=== PATIENT | female | born 1990 | race Caucasian/White ===

== ENCOUNTER 2017-03-09 14:31 | Emergency (ER) | payer BC ==
[~2017-03-09] VITALS: Ht 170.2 cm; Wt 63.5 kg
[2017-03-09 14:37] VITALS: TEMP 36.7
[2017-03-09] MEDS ORDERED: PRENTAB26 PO (15:01)
--- NOTE | 2017-03-09 15:04 | DIAGNOSTIC IMAGING REPORT ---
CHEST ONE VIEW PORTABLE HISTORY: 26 years-old Female EVALUATE RESPIRATORY DISTRESS.DYSPNEA acute respiratory distress COMPARISON: None available TECHNIQUE: Portable upright AP view the chest FINDINGS: Cardiomediastinal and hilar silhouettes are within normal limits. There is no pneumothorax, pleural effusion, focal airspace consolidation or overt pulmonary edema. Relative increased density left lung base is likely secondary to overlying breast parenchyma. The bones of the chest appear grossly intact. IMPRESSION: No acute cardiopulmonary process. The above report was generated using voice recognition software. It may contain grammatical, syntax or spelling errors. Electronically signed by: Chester Perdomo M.D. 03/09/2017 3:03 PM Dictated Date/Time: 03/09/2017 3:02 PM
[2017-03-09 15:29] VITALS: Ht 170.2 cm; Wt 63.5 kg
[2017-03-09 15:32] LABS: BASO % 0.2 %; BASO ABS # 0.02 K/uL (0-0.2); COMPLETE YES; HEMATOCRIT 34.7 % (37-47); IG% 0.1 %; LYMPH % 12.8 %; MEAN CELL VOLUME 86.1 fL (80-100); MEAN CORPUSCULAR HEMOGLOBIN 30.3 pg (25-34); MEAN CORPUSCULAR HGB CONC 35.2 g/dl (32-36); MEAN PLATELET VOLUME 10.5 fL (7.4-10.4); MONO % 4.7 %; NEUT % 81.2 %; PLATELET COUNT 166 K/uL (130-400); RED BLOOD COUNT 4.03 M/uL (4.2-5.4); WHITE BLOOD COUNT 10.12 K/uL (4.8-10.8)
[2017-03-09 15:43] LABS: PROTHROMBIN TIME (PATIENT) 10.4 SECONDS (9.0-12.0)
[2017-03-09 15:43] LABS: MANUAL MICROSCOPIC REQUIRED? NO; REVIEW REQ? NO; URINE APPEARANCE CLEAR (CLEAR); URINE BILIRUBIN NEG (NEG); URINE COLOR YELLOW; URINE EPITHELIAL CELL AUTO 20-30 /lpf (0-5); URINE NITRITE NEG (NEG); URINE SPECIFIC GRAVITY 1.027 (1.000-1.030); UROBILINOGEN NEG (NEG)
[2017-03-09 15:51] LABS: ALT/SGPT 27 U/L (12-78); BLOOD UREA NITROGEN 9 mg/dl (7-18); BUN/CREATININE RATIO 13.6 (10-20); CARBON DIOXIDE 26 mmol/L (21-32); CHLORIDE 102 mmol/L (98-107); CREATININE 0.64 mg/dl (0.60-1.20); GLUCOSE 76 mg/dl (70-99); POTASSIUM 3.4 mmol/L (3.5-5.1); SODIUM 138 mmol/L (136-145)
[2017-03-09 15:56] LABS: ALB/GLOB RATIO 0.7 (0.9-2); ALKALINE PHOSPHATASE 56 U/L (45-117); AST/SGOT 18 U/L (15-37)
--- NOTE | 2017-03-09 16:10 | EMERGENCY ROOM VISIT NOTE ---
History Report prepared by Chon: Elisabet Le Under the Supervision of: Dr. Alexis Gu D.O. First contact with patient: 14:47 Chief Complaint: RIB PAIN Stated Complaint: LEFT RIB PAIN,COUGH,PHLEGM,14WKS PREG History of Present Illness The patient is a 26 year old female who presents to the Emergency Room with complaints of persistent left rib pain starting 2 weeks ago. Her symptoms started 3 weeks ago with chills and congestion. These symptoms seemed to resolve and she began coughing. She went to her PCP who did not give her any medications because she was 12 weeks . She is now not coughing as much, but is having left rib pain. It worsens with breathing and coughing. She denies any fever, leg swelling or pain, chest pain, nausea, vomiting, abdominal cramping, vaginal bleeding or discharge, or back pain. She is currently 14 weeks . This is her first . She is due September 05. She is not on any medications besides a multivitamin. She denies any tobacco or alcohol use. She denies any history of blood clots. She denies any previous surgeries besides a tonsillectomy. Source of History: patient Onset: 2 weeks ago Position: other (left rib) Quality: other (pain) Timing: other (persistent) Modifying Factors (Worsening): breathing, other (coughing) Associated Symptoms: + cough, No fevers, No chest pain, No nausea, No vomiting, No abdominal pain, No back pain Note: Pt denies leg swelling/pain, vaginal bleeding/discharge. Review of Systems See HPI for pertinent positives & negatives. A total of 10 systems reviewed and were otherwise negative. Past Medical & Surgical Surgical Problems: (1) S/P tonsillectomy and adenoidectomy Family History Cancer Diabetes mellitus Heart disease Hypertension Social History Smoking Status: Never Smoker Marital Status: Housing Status: lives with significant other Current/Historical Medications Scheduled Albuterol Hfa (Ventolin Hfa), 1 PUFF INH Q4 Azithromycin (Zithromax Z-Gabino), 1 PKT PO UD Multivit/Min/Iron/Fol Ac/Pren ( Vitamin), 1 TAB PO DAILY Allergies Coded Allergies: No Known Allergies (Unverified , 03/09/17) Physical Exam Vital Signs Date Time Temp Pulse Resp B/P (MAP) Pulse Ox O2 Delivery O2 Flow Rate FiO2 03/09/17 16:23 57 20 108/56 99 Room Air 03/09/17 16:09 Room Air 03/09/17 15:29 Room Air 03/09/17 15:19 59 03/09/17 14:37 36.7 93 17 129/85 97 Room Air Physical Exam GENERAL: Patient is awake, alert, and in no acute distress. Patient is resting comfortably and showing no signs of anxiety EYES: The conjunctivae are clear. The pupils are round and reactive. EARS, NOSE, MOUTH AND THROAT: The nose is without any evidence of any deformity. Mucous membranes are moist tongue is midline NECK: The neck is nontender and supple. RESPIRATORY: Normal respiratory effort is noted there is no evidence of wheezing rhonchi or rales CARDIOVASCULAR: Regular rate and rhythm noted there no murmurs rubs or gallops normal S1 normal S2 GASTROINTESTINAL: The abdomen is soft. Bowel sounds are present in all quadrants. Abdomen is nontender BACK: No midline tenderness or or step-off noted range of motion in flexion extension as well as rotation no signs of muscle spasm noted MUSCULOSKELETAL/EXTREMITIES: There is no evidence of gross deformity full range of motion is noted in the hips and shoulders SKIN: There is no obvious evidence of any rash. There are no petechiae, pallor or cyanosis noted. NEUROLOGIC: Patient is awake alert and oriented x3 strength is symmetric patellar reflexes are 2+ bilaterally Medical Decision & Procedures ER Provider Diagnostic Interpretation: X-ray results as stated below per interpretation by me and the radiologist. CHEST ONE VIEW PORTABLE HISTORY: 26 years-old Female EVALUATE RESPIRATORY DISTRESS.DYSPNEA acute respiratory distress COMPARISON: None available TECHNIQUE: Portable upright AP view the chest FINDINGS: Cardiomediastinal and hilar silhouettes are within normal limits. There is no pneumothorax, pleural effusion, focal airspace consolidation or overt pulmonary edema. Relative increased density left lung base is likely secondary to overlying breast parenchyma. The bones of the chest appear grossly intact. IMPRESSION: No acute cardiopulmonary process. The above report was generated using voice recognition software. It may contain grammatical, syntax or spelling errors. Electronically signed by: Chester Perdomo M.D. 03/09/2017 3:03 PM Dictated Date/Time: 03/09/2017 3:02 PM Laboratory Results 03/09/17 15:17 Red Blood Count 4.03, Mean Corpuscular Volume 86.1, Mean Corpuscular Hemoglobin 30.3, Mean Corpuscular Hemoglobin Concent 35.2, Mean Platelet Volume 10.5, Neutrophils (%) (Auto) 81.2, Lymphocytes (%) (Auto) 12.8, Monocytes (%) (Auto) 4.7, Eosinophils (%) (Auto) 1.0, Basophils (%) (Auto) 0.2, Neutrophils # (Auto) 8.21, Lymphocytes # (Auto) 1.30, Monocytes # (Auto) 0.48, Eosinophils # (Auto) 0.10, Basophils # (Auto) 0.02 03/09/17 15:17 Test 03/09/17 15:17 03/09/17 15:30 White Blood Count 10.12 K/uL (4.8-10.8) Red Blood Count 4.03 M/uL (4.2-5.4) Hemoglobin 12.2 g/dL (12.0-16.0) Hematocrit 34.7 % (37-47) Mean Corpuscular Volume 86.1 fL (80-100) Mean Corpuscular Hemoglobin 30.3 pg (25-34) Mean Corpuscular Hemoglobin Concent 35.2 g/dl (32-36) Platelet Count 166 K/uL (130-400) Mean Platelet Volume 10.5 fL (7.4-10.4) Neutrophils (%) (Auto) 81.2 % Lymphocytes (%) (Auto) 12.8 % Monocytes (%) (Auto) 4.7 % Eosinophils (%) (Auto) 1.0 % Basophils (%) (Auto) 0.2 % Neutrophils # (Auto) 8.21 K/uL (1.4-6.5) Lymphocytes # (Auto) 1.30 K/uL (1.2-3.4) Monocytes # (Auto) 0.48 K/uL (0.11-0.59) Eosinophils # (Auto) 0.10 K/uL (0-0.5) Basophils # (Auto) 0.02 K/uL (0-0.2) RDW Standard Deviation 41.5 fL (36.4-46.3) RDW Coefficient of Variation 13.2 % (11.5-14.5) Immature Granulocyte % (Auto) 0.1 % Immature Granulocyte # (Auto) 0.01 K/uL (0.00-0.02) Prothrombin Time 10.4 SECONDS (9.0-12.0) Prothromb Time International Ratio 1.0 (0.9-1.1) Activated Partial Thromboplast Time 27.1 SECONDS (21.0-31.0) Partial Thromboplastin Ratio 1.0 Anion Gap 10.0 mmol/L (3-11) Est Creatinine Clear Calc Drug Dose 127.3 ml/min Estimated GFR () 140.7 Estimated GFR (Non- 121.4 BUN/Creatinine Ratio 13.6 (10-20) Calcium Level 9.0 mg/dl (8.5-10.1) Total Bilirubin 0.3 mg/dl (0.2-1) Aspartate Amino Transf (AST/SGOT) 18 U/L (15-37) Alanine Aminotransferase (ALT/SGPT) 27 U/L (12-78) Alkaline Phosphatase 56 U/L (45-117) Troponin I < 0.015 ng/ml (0-0.045) Total Protein 8.0 gm/dl (6.4-8.2) Albumin 3.4 gm/dl (3.4-5.0) Globulin 4.6 gm/dl (2.5-4.0) Albumin/Globulin Ratio 0.7 (0.9-2) Urine Color YELLOW Urine Appearance CLEAR (CLEAR) Urine pH 5.0 (4.5-7.5) Urine Specific [place] 1.027 (1.000-1.030) Urine Protein NEG (NEG) Urine Glucose (UA) NEG (NEG) Urine Ketones TRACE (NEG) Urine Occult Blood NEG (NEG) Urine Nitrite NEG (NEG) Urine Bilirubin NEG (NEG) Urine Urobilinogen NEG (NEG) Urine Leukocyte Esterase TRACE (NEG) Urine WBC (Auto) 1-5 /hpf (0-5) Urine RBC (Auto) 0-4 /hpf (0-4) Urine Hyaline Casts (Auto) 1-5 /lpf (0-5) Urine Epithelial Cells (Auto) 20-30 /lpf (0-5) Urine Bacteria (Auto) NEG (NEG) Laboratory results per my review. Procedure Bedside ultrasound was done at the patient's request to evaluate the intrauterine gestation. A single live intrauterine gestation was noted with good movement and heart sounds were noted on Doppler. The parents were able to watch the ultrasound were very pleased with the findings. ECG Indication: chest pain Rate (beats per minute): 61 Rhythm: normal sinus Findings: no ectopy, other (no acute ST segment abnormality) Comparison ECG Date: no prior available ED Course 1444: The patient was evaluated in room B4B. A complete history and physical examination were performed. Medical Decision Prior records/ancillary studies reviewed. Triage Nursing notes reviewed. Additional history obtained from [facility]. The patient's history was concerning for chest pain. Differential diagnosis: Etiologies such as cardiac ischemia, aortic dissection, pulmonary embolism, pneumonia, pneumothorax, musculoskeletal, infections, pericarditis, myocarditis , esophageal rupture, gastrointestinal, as well as others were entertained. The patient is a 26-year-old female who is currently who is been expressing cough over the last few weeks. She started noticing pain over her left ribs. She was not started on any medications because she states her primary care physician was uncomfortable treating her with any medications because she is currently . The patient has reproducible pain but also appears to have some degree of pleurisy. Chest x-ray did not reveal any acute abdomen abnormalities. The patient was not hypoxic or tachycardic. The patient had a mild elevation in her d-dimer however when correction was made for this d-dimer is likely negative. The patient did not appear to have any signs of DVT on lower extremity Doppler. I discussed patient's laboratory radiographic studies with her. I do not feel that this is an infectious type of bronchitis but because of the ongoing symptoms started on a bronchodilator. She was also given a prescription for Zithromax and encouraged to start this medication if symptoms are not improved in 48 hours. She was also encouraged to continue using Motrin and Tylenol for pain and follow-up with her doctor soon as possible. She was also encouraged return to the emergency apartment immediately if symptoms change worsen or the need arises. I specifically told her that if she started to notice significant shortness of breath with exertion palpitations tachycardia dizziness or near-syncope she should return immediately for further workup. Medication Reconcilliation Current Medication List: was personally reviewed by me Blood Pressure Screening Patient's blood pressure: Normal blood pressure Blood pressure disposition: Did not require urgent referral Impression Primary Impression: Chest pain Additional Impression: Bronchitis Scribe Attestation The scribe's documentation has been prepared under my direction and personally reviewed by me in its entirety. I confirm that the note above accurately reflects all work, treatment, procedures, and medical decision making performed by me. Departure Information Prescriptions Azithromycin (ZITHROMAX Z-GABINO) 250 Mg Tab 1 PKT PO UD for 5 Days, #1 PKT Prov: Alexis Gu, DO 03/09/17 Albuterol Hfa (VENTOLIN HFA) 200 Puffs/51815 Mcg Aers 1 PUFF INH Q4, #1 INHALER Prov: Alexis Gu, DO 03/09/17 Patient Instructions [facility] Problem Qualifiers Primary Impression: Chest pain Chest pain type: intercostal pain Qualified Codes: R07.82 - Intercostal pain
--- NOTE | 2017-03-09 17:32 | DIAGNOSTIC IMAGING REPORT ---
BILATERAL LOWER EXTREMITY VENOUS DOPPLER HISTORY: Acute chest pain with . Concern for deep venous thrombosis CP, COMPARISON STUDY: Chest radiograph 03/09/2017. FINDINGS: There is normal compressibility, flow, and augmentation within the bilateral lower extremity deep venous systems. IMPRESSION: No sonographic evidence of deep venous thrombosis within the right or left lower extremity. Electronically signed by: Chester Perdomo M.D. 03/09/2017 5:30 PM Dictated Date/Time: 03/09/2017 5:29 PM
[2017-03-09] MEDS ORDERED: VNTHFA/IN INH (18:01)
[2017-03-09] MEDS ORDERED: AZITTAB PO (18:01)
[2017-03-09 18:10] VITALS: BP 117/69; PULSE 66; O2SAT 99
== END 2017-03-09 18:10 | disposition home or self-care (01) ==
LOC: C.EDB 14:33
DX: O99.512 Diseases of the respiratory system complicating pregnancy, second trimester (principal); J40 Bronchitis, not specified as acute or chronic; R07.82 Intercostal pain; Z3A.14 14 weeks gestation of pregnancy

== ENCOUNTER 2017-08-29 08:06 | Inpatient (IN) | payer BC ==
[~2017-08-29] VITALS: Ht 170.2 cm; Wt 81.8 kg
[~2017-08-29 08:06] MED LIST: VNTHFA/IN INH
[2017-08-29] MEDS ORDERED: LACTATED RINGER'S 1000ML 1,000 ML IV SCH ×2 (08:49→22:00)
[2017-08-29] MEDS ORDERED: LACTATED RINGER'S 1000ML 500 ML IV ONE (08:49)
[2017-08-29 09:21] LABS: BASO % 0.2 %; BASO ABS # 0.02 K/uL (0-0.2); EOS ABS # 0.12 K/uL (0-0.5); HEMATOCRIT 32.9 % (37-47); HEMOGLOBIN 11.5 g/dL (12.0-16.0); IG# 0.05 K/uL (0.00-0.02); LYMPH % 10.1 %; LYMPH ABS # 1.24 K/uL (1.2-3.4); MEAN CELL VOLUME 87.3 fL (80-100); MEAN CORPUSCULAR HEMOGLOBIN 30.5 pg (25-34); MEAN PLATELET VOLUME 10.4 fL (7.4-10.4); MONO % 6.3 %; MONO ABS # 0.77 K/uL (0.11-0.59); NEUT ABS # 10.12 K/uL (1.4-6.5); PLATELET COUNT 183 K/uL (130-400); RED CELL DISTRIBUTION WIDTH CV 12.9 % (11.5-14.5); RED CELL DISTRIBUTION WIDTH SD 41.5 fL (36.4-46.3); WHITE BLOOD COUNT 12.32 K/uL (4.8-10.8)
[2017-08-29 09:26] VITALS: Ht 170.2 cm; Wt 81.8 kg
[2017-08-29 09:53] LABS: ALBUMIN 2.4 gm/dl (3.4-5.0); CALCIUM 8.9 mg/dl (8.5-10.1); CREATININE 0.62 mg/dl (0.60-1.20); POTASSIUM 3.7 mmol/L (3.5-5.1)
[2017-08-29 09:59] LABS: TOTAL PROTEIN 6.7 gm/dl (6.4-8.2)
[2017-08-29 10:00] LABS: INR 0.9 (0.9-1.1); PTT PATIENT 27.8 SECONDS (21.0-31.0)
[2017-08-29] MEDS ORDERED: LACTATED RINGER'S 1000ML 1,000 ML IV PRN (12:41)
[2017-08-29] MEDS ORDERED: BUPIVACAINE 0.25% 30 ML VIAL ONE (13:10)
[2017-08-29] MEDS ORDERED: FENTANYL CITRATE INJ 50 MCG/1 ML 2 ML VIAL ONE (13:11)
[2017-08-29] MEDS ORDERED: FENTANYL 2MCG/ML ROPIV 1.25MG/ML 100ML BAG ONE (13:11)
[2017-08-29] MEDS ORDERED: EpHEDrine SULFATE INJ 50 MG/ML AMP ONE (13:11)
[2017-08-29] MEDS: LACTATED RINGER'S 1000ML 1,000 ML IV SCH ×2 (13:16→16:40)
[2017-08-29] MEDS ORDERED: LACTATED RINGER'S 1000ML 500 ML IV PRN (14:20)
[2017-08-29] MEDS ORDERED: NALOXONE HCL INJ 1 MG in SODIUM CHLORIDE 0.9% 1000ML 1,000 ML IV PRN ×4 (14:20)
[2017-08-29] MEDS ORDERED: NALOXONE HCL INJ 0.4 MG/1 ML VIAL/CARP IV PRN (14:30)
[2017-08-29] MEDS ORDERED: FENTANYL 2MCG/ML ROPIV 1.25MG/ML 100ML BAG EPI PRN (14:30)
[2017-08-29] MEDS ORDERED: PROMETHAZINE HCL INJ 25 MG in SODIUM CHLORIDE 0.9% 50ML 50 ML IV PRN (14:30)
[2017-08-29] MEDS ORDERED: DiphenhydrAMINE HCL 50 MG/ML VIAL IV PRN (14:30)
[2017-08-29] MEDS ORDERED: EpHEDrine SULFATE INJ 50 MG/ML AMP IV PRN (14:30)
[2017-08-29] MEDS ORDERED: ONDANSETRON INJ 2 MG/ML 2 ML VIAL IV PRN (14:30)
[2017-08-29] MEDS ORDERED: NALBUPHINE HCL INJ 10 MG/ML AMP IV PRN (14:30)
[2017-08-29] MEDS ORDERED: OXYTOCIN 30 UNITS/500ML NSS IV ONE (20:19)
[2017-08-29] MEDS ORDERED: CEFAZOLIN IV 2,000 MG in SYRINGE 0 ML IV STA (21:12)
[2017-08-29] MEDS ORDERED: NURSING VERBAL MED ORDER ONE (21:15)
[2017-08-29] MEDS ORDERED: ACETAMINOPHEN 325 MG TAB PO PRN (22:00)
[2017-08-29] MEDS ORDERED: LANOLIN OINT EXT PRN (22:00)
[2017-08-29] MEDS ORDERED: HYDROCORTISONE ACETATE 25 MG SUPP PR PRN (22:00)
[2017-08-29] MEDS ORDERED: MEASLES, MUMPS & RUBELLA VIRUS VIAL SQ. ONE (22:00)
[2017-08-29] MEDS ORDERED: OXYTOCIN 30 UNITS/500ML NSS IV PRN (22:00)
[2017-08-29] MEDS ORDERED: BENZOCAINE 20% AER SPR 82.5 GM CAN EXT PRN (22:00)
[2017-08-29] MEDS ORDERED: SUPERCREAM 0.870 % 15GM JAR EXT PRN (22:00)
[2017-08-29] MEDS ORDERED: DIPHTHERIA/TETANUS/PERTUSSIS 0.5 ML SYR/VIAL IM. ONE (22:00)
[2017-08-29 23:55] VITALS: BP 109/59; PULSE 73; TEMP 36.7
--- NOTE | 2017-08-30 00:11 | DELIVERY SUMMARY ---
DATE OF OPERATION: 08/29/2017 TIME OF DELIVERY OF BABY: 20:48 p.m. TIME OF DELIVERY OF PLACENTA: 21:10 p.m. DETAILS OF DELIVERY: The patient was found to be fully dilated and desired to push. She pushed for about 40 minutes and delivered the head without difficulty. Shoulders were delivered with minimal traction, and while delivering the shoulders, the left hand was found to be flexed next to the baby' s neck/ head. It was all delivered without difficulty Baby was handed off to the mother where mouth and nose were suctioned. Cord was clamped x2 at 1 minute delay and cut. It was 3 vessels cord. Cord blood was collected into a special bag per the patient's request for donation. Vagina and perineum were checked for the lacerations. There was a second degree perineal laceration at the posterior fourchette. It was confirmed with the rectal exam. Good sphincter tone was noted. The perineal body muscles were grasped with Allis clamps and reinforced during repair. Gmtpdi-or-ileam stitches placed around the Allis clamps to support perineal body muscles around the external anal sphincter. Gloves were changed. Then the vaginal mucosa was repaired with 2-0 Vicryl in running fashion, skin in subcuticular fashion. Excellent hemostasis was achieved. There was a small left labial laceration involving the hymen. It was repaired with 2-0 Vicryl in running fashion. There was a superficial right labial laceration, and it was repaired with 3-0 Vicryl on an SH needle. Excellent hemostasis was achieved. Placenta was found to be in the vagina. It was delivered spontaneously as intact and complete. Uterus was explored and found to be empty. Lower segment was cleared of all clots and debris. Fundus was firm. EBL was 200 ml. Rectal exam was repeated. Good sphincter tone was noted. No sutures were felt. Mom and baby tolerated procedure well. Sponge, lap, and needle counts were correct x3. Baby was a viable female infant. Apgars were 8 and 9. Weight is 3113 gr. No complications happened, and I was present during whole procedure. I attest to the content of the Intraoperative Record and any orders documented therein. Any exceptions are noted below. MTDD
[2017-08-30] MEDS: IBUPROFEN 600 MG TAB PO PRN ×5 (02:46→23:51)
[2017-08-30 03:05] VITALS: BP 127/65; PULSE 69; TEMP 37.1; O2SAT 97
[2017-08-30 08:19] LABS: HEMATOCRIT 34.2 % (37-47); HEMOGLOBIN 11.6 g/dL (12.0-16.0)
[2017-08-30] MEDS: PRENATAL VITAMIN TAB PO SCH (08:40)
[2017-08-30] MEDS: DOCUSATE SODIUM 100 MG CAP PO SCH ×2 (08:40→19:55)
[2017-08-30] MEDS: FERROUS SULFATE 325 MG TAB PO SCH (08:40)
[2017-08-30] MEDS: OXYCODONE/ACETAMINOPHEN 5-325 TAB PO PRN ×2 (08:43→16:13)
--- NOTE | 2017-08-30 09:15 | Anesthesia Procedure Note ---
Anesthesia Epidural Removal Nt Date & Time August 30, 2017 at 09:15 Vital Signs Pain Intensity: 4.0 Vital Signs Past 12 Hours Date Time Temp Pulse Resp B/P (MAP) Pulse Ox O2 Delivery O2 Flow Rate FiO2 08/30/17 03:05 37.1 69 16 127/65 (85) 97 Room Air 08/29/17 23:55 Room Air 08/29/17 23:55 36.7 73 18 109/59 (76) Room Air Notes Mental Status: alert / awake / arousable, participated in evaluation Nausea / Vomiting: adequately controlled Pain: adequately controlled Airway Patency, RR, SpO2: stable & adequate BP & HR: stable & adequate Hydration State: stable & adequate Neuraxial Anesthesia: was administered Anesthetic Complications: no major complications apparent, pt satisfied with anesthetic care Epidural: removed without complications, with tip intact
[2017-08-30 09:18] VITALS: BP 122/73; PULSE 56; TEMP 36.7
--- NOTE | 2017-08-30 10:07 | OB/GYN Progress Note ---
[employer] Progress Note Date of Service August 30, 2017. Subjective conversation w/ patient, physical exam Ambulation: ambulating normally Voiding: no voiding problems Passing Gas: Yes Diet Tolerance: Regular Diet Lochia: Moderate Feeding Type: Breast Feeding Review of Systems Constitutional: No fever, No chills, No sweats, No weight loss, No weakness, No fatigue, No problem reported Respiratory: No cough, No sputum, No wheezing, No shortness of breath, No dyspnea on exertion, No dyspnea at rest, No hemoptysis, No problem reported Cardiac: No chest pain, No orthopnea, No PND, No edema, No claudication, No palpitations, No problem reported Breast: No see HPI, No breast lump, No change in shape, No nipple discharge, No breast pain, No problem reported Abdomen: No pain, No nausea, No vomiting, No diarrhea, No constipation, No GI bleeding, No problem reported Female : No see HPI, No dysuria, No urinary frequency, No hematuria, No incontinence, No abnormal vaginal bleeding, No vaginal discharge, No problem reported Objective Vital Signs Date Time Temp Pulse Resp B/P (MAP) Pulse Ox O2 Delivery O2 Flow Rate FiO2 08/30/17 09:26 Room Air 08/30/17 09:18 36.7 56 18 122/73 (89) 08/30/17 03:05 37.1 69 16 127/65 (85) 97 Room Air 08/29/17 23:55 Room Air 08/29/17 23:55 36.7 73 18 109/59 (76) Room Air Physical Exam General Appearance: WELL-APPEARING, WD/WN, NO APPARENT DISTRESS Respiratory/Chest: chest non-tender, lungs clear, normal breath sounds Cardiovascular: regular rate, rhythm, no edema, no gallop Abdomen: normal bowel sounds, non tender, soft Fundus: Firm Extremities: normal range of motion, non-tender, normal inspection Laboratory Results Last 24 Hours Test 08/30/17 07:49 Hemoglobin 11.6 g/dL Hematocrit 34.2 % Assessment and Plan Day Number: 1 Continue Routine Care: VD day #1 pt doing well D/c home with instructions
[2017-08-30 12:00] VITALS: BP 110/70; PULSE 53; TEMP 36.7
[2017-08-30 16:45] VITALS: BP 122/77; PULSE 69; TEMP 36.8
[2017-08-30 19:25] VITALS: BP 112/67; PULSE 60; TEMP 36.6; O2SAT 97
[2017-08-30] MEDS ORDERED: BISACODYL 5 MG TABEC PO SCH (20:00)
[2017-08-30 23:40] VITALS: BP 110/69; PULSE 53; TEMP 36.5; O2SAT 98
[2017-08-31] MEDS ORDERED: BISACODYL 10 MG SUPP PR PRN (07:00)
[2017-08-31 07:06] LABS: HEMATOCRIT 29.5 % (37-47); HEMOGLOBIN 9.9 g/dL (12.0-16.0); MEAN CELL VOLUME 89.4 fL (80-100); MEAN CORPUSCULAR HGB CONC 33.6 g/dl (32-36); MEAN PLATELET VOLUME 10.1 fL (7.4-10.4); PLATELET COUNT 146 K/uL (130-400); RED CELL DISTRIBUTION WIDTH CV 13.4 % (11.5-14.5); RED CELL DISTRIBUTION WIDTH SD 43.4 fL (36.4-46.3); WHITE BLOOD COUNT 11.52 K/uL (4.8-10.8)
--- NOTE | 2017-08-31 07:17 | OB/GYN Progress Note ---
[facility]CH[employer]IC[employer] Progress Note Date of Service August 31, 2017. Subjective conversation w/ patient, physical exam Ambulation: ambulating normally Voiding: no voiding problems Passing Gas: Yes Diet Tolerance: Regular Diet Lochia: Moderate Review of Systems Constitutional: No fever, No chills, No sweats, No weight loss, No weakness, No fatigue, No problem reported Respiratory: No cough, No sputum, No wheezing, No shortness of breath, No dyspnea on exertion, No dyspnea at rest, No hemoptysis, No problem reported Cardiac: No chest pain, No orthopnea, No PND, No edema, No claudication, No palpitations, No problem reported Breast: No see HPI, No breast lump, No change in shape, No nipple discharge, No breast pain, No problem reported Abdomen: No pain, No nausea, No vomiting, No diarrhea, No constipation, No GI bleeding, No problem reported Female : No see HPI, No dysuria, No urinary frequency, No hematuria, No incontinence, No abnormal vaginal bleeding, No vaginal discharge, No problem reported Objective Vital Signs Date Time Temp Pulse Resp B/P (MAP) Pulse Ox O2 Delivery O2 Flow Rate FiO2 08/30/17 23:40 36.5 53 16 110/69 (83) 98 Room Air 08/30/17 23:40 Room Air 08/30/17 19:25 36.6 60 16 112/67 (82) 97 Room Air 08/30/17 16:45 Room Air 08/30/17 16:45 36.8 69 16 122/77 (92) 08/30/17 12:00 36.7 53 16 110/70 (83) 08/30/17 09:26 Room Air 08/30/17 09:18 36.7 56 18 122/73 (89) Physical Exam General Appearance: WELL-APPEARING, WD/WN, NO APPARENT DISTRESS Respiratory/Chest: chest non-tender, lungs clear, normal breath sounds Cardiovascular: regular rate, rhythm, no edema, no gallop Abdomen: normal bowel sounds, non tender, soft Fundus: Firm Extremities: normal range of motion, non-tender, normal inspection Laboratory Results Last 24 Hours Test 08/30/17 07:49 08/31/17 06:42 Hemoglobin 11.6 g/dL 9.9 g/dL Hematocrit 34.2 % 29.5 % White Blood Count 11.52 K/uL Red Blood Count 3.30 M/uL Mean Corpuscular Volume 89.4 fL Mean Corpuscular Hemoglobin 30.0 pg Mean Corpuscular Hemoglobin Concent 33.6 g/dl RDW Standard Deviation 43.4 fL RDW Coefficient of Variation 13.4 % Platelet Count 146 K/uL Mean Platelet Volume 10.1 fL Assessment and Plan Day Number: 1 Continue Routine Care: PPD #2 Pt doing well disch home with instructions
[2017-08-31] MEDS ORDERED: FRRS300 PO (07:19)
[2017-08-31] MEDS ORDERED: CLC100 PO (07:19)
[2017-08-31] MEDS ORDERED: MTR600X PO (07:19)
[2017-08-31 07:20] VITALS: BP 147/80; PULSE 60; TEMP 36.6; O2SAT 99
--- NOTE | 2017-08-31 07:21 | Discharge Instructions ---
Discharge Instructions Date of Service August 31, 2017. Admission Reason for Admission: Check Labor Discharge Discharge Diagnosis / Problem: Discharge Goals Goal(s): Routine recovery after delivery Activity Recommendations Activity Limitations: as noted below ACTIVITY RECOMMENDATIONS: * Gradual return to full activity over the next 2-3 weeks. * No lifting - nothing heavier than baby over the next 2-3 weeks. * Do not engage in vigorous exercise, sexual activity or sports until cleared by your physician. * Do not drive or operate any motorized equipment until cleared by your physician. * You may shower/bathe daily. BREAST CARE: If you are not breast feeding: * Wear a supportive bra 24 hours a day for one to two weeks. * Avoid stimulating your breasts and nipples as much as possible during the first few weeks after delivery. * When taking a shower, have the warm water hit your back, not breasts. * When your breasts feel full, apply ice packs. Usually three to four times a day helps ease the discomfort. * Take a mild pain medication (Tylenol/Motrin) when you are uncomfortable. If breast feeding: * Use breast milk to lubricate nipples. Lansinoh cream may be used for sore nipples. You do not need to remove cream prior to breast feeding. If using a different brand of cream, check the label for directions regarding removal of cream prior to nursing. * Wear a supportive bra. * If having problems with breasts or breast feeding, call a personnel consultant or your health care provider. EPISIOTOMY CARE: After delivery, if you have an episiotomy (stitches), the following steps will ease discomfort and aid healing. * For the first 24 hours after delivery, place ice packs next to your episiotomy to help reduce swelling. * After the first 24 hour-period, sitz baths, either portable or in the tub, are suggested. A shower with a shower arm sprayed over the episiotomy may be comforting. * Esha care should be done after each voiding and bowel movement. Squirt warm water from a plastic bottle over the perineum (region of the body between the anus and urinary opening) and pat dry. * Use Dermoplast to ease discomfort. Shake container. [place] directly over the episiotomy. * Place a Tucks on a clean sanitary pad next to your episiotomy. OVER THE COUNTER MEDICATION: * For discomfort or pain, you may use Acetaminophen (Tylenol), Ibuprofen (Advil ), or Naproxen (Aleve) following the package directions. * For constipation you may use Colace following the package directions. SPECIAL CARE INSTRUCTIONS: When you are discharged from the hospital, it is important for you to follow the instructions listed below: * During the first week at home, you should be able to care for yourself and your baby. In addition, the usual light household activities are encouraged. * Limit your activities to the way you feel. Do not try to clean the house or move furniture. Be sensible. * If you actively engage in sports and have done so up until the time of your delivery, you may resume these activities as soon as you feel able. This may take up to one month or even longer. Use good judgment. * Continue to take your vitamins for at least six weeks after the of your baby. * Your diet need not be limited unless you were on a special diet before your delivery. Breast-feeding mothers need around 2500 calories per day and at least 64-80 ounces of fluid per day (8 to 10 glasses). * You should eat foods from the four major food groups. Crash diets or fad diets are to be avoided. Eating lean meats, fresh fruits and vegetables, low-fat dairy products, high fiber foods and a regular exercise program, will help you get back to your pre- weight without putting your health at risk. * Constipation is sometimes a problem after delivery. Take a mild laxative as needed. If breast feeding, Milk of Magnesia is acceptable to use. You may use a suppository or Fleets enema if no episiotomy. * A daily shower or tub bath is suggested. Be sure to thoroughly and gently dry the perineum. * A bloody vaginal discharge will usually continue until around four weeks post . A small amount of bleeding may continue for as long as six weeks. Vaginal discharge changes from the bright red bleeding after delivery to pink then brownish and finally yellowish-pink before becoming white and disappearing. * Bleeding may increase with activity. Your first period may come in 4-8 weeks. If you are breast feeding, your period may be delayed even longer. * [place] (sex) can begin whenever both you and your partner feel comfortable and do not have any form of genital infection. It is recommended that you wait until after your return appointment and discuss with your physician. If you have questions, please talk to your health care practitioner. A condom should be used to prevent infection and . * Foreplay, gentle intercourse and lubrication is very important the first several times to prevent pain. A water-based lubricant such as K-Y jelly or Astroglide may be used. * Tampons may be used six weeks after delivery. * Douching should be avoided for 6 weeks after delivery. * If you have RH negative blood and your baby is RH positive, you will receive RHOGAM by injection prior to discharge. The nurse will give you a card to keep with you that has the date and place that you received RHOGAM after delivery. * During your care, you had a Rubella screen done to check for the presence of rubella antibodies in your blood. If your test was negative, you will receive a Rubella vaccine prior to discharge. This vaccine may cause a fever, soreness at the injection site and flu-like symptoms. If these symptoms persist, notify your health care practitioner. is not advised for three months after a Rubella vaccine. There is a higher chance of having a baby with defects if conceived within three months of getting the vaccine. * If you were discharged 24 hours from delivery or before 48 hours: Visiting nurses will come to your home 48 hours after discharge to assess you and your baby. The visiting nurse will meet with you while you are in the hospital to arrange a time and get directions to your home. * Verbalizes understanding of car seat law as reviewed with patient nursing. * Car Seat hand-out given and reviewed with patient by nursing. * Shaken baby information reviewed with patient by nursing. Call you doctor if: * Heavy bleeding (saturating several pads an hour) or passing clots the size of your fist. * A fever >101 degrees F (38.3 degrees C) on two occasions four hours apart and/or chills. * Unusual pain in the pelvic or vaginal areas. * "Baby Blues" lasting longer than two weeks. If you have any questions or concerns, call your health care practitioner at . FOLLOW-UP VISIT: * Please call the office at to schedule a 6 week examination. It is important you keep this appointment. * It is important for you to make arrangements for either yearly or twice yearly check-ups thereafter. . Current Hospital Diet Patient's current hospital diet: Regular OB Diet Discharge Diet Recommended Diet: Regular Diet Pending Studies Studies pending at discharge: no Medical Emergencies . Who to Call and When: Medical Emergencies: If at any time you feel your situation is an emergency, please call 911 immediately. . Non-Emergent Contact Non-Emergency issues call your: Specialist . . "Provider Documentation" section prepared by Edgar James. .
[2017-08-31] MEDS: IBUPROFEN 600 MG TAB PO PRN (08:30)
[2017-08-31] MEDS: PRENATAL VITAMIN TAB PO SCH (09:34)
[2017-08-31] MEDS: DOCUSATE SODIUM 100 MG CAP PO SCH (09:35)
[2017-08-31] MEDS: FERROUS SULFATE 325 MG TAB PO SCH (09:35)
[2017-08-31 13:31] VITALS: BP_DIAS 80; PULSE 60; TEMP 36.6
[2017-09-02] MEDS ORDERED: PRENTAB26 PO (15:01)
== END 2017-08-31 14:30 | disposition home or self-care (01) | DRG 775 ==
LOC: C.OPB 08:06 → C.LD 08:07 → C.OPB 12:49 → C.OBG 08-30 00:08 → EDSTATUS 09-05 08:04
PROVIDERS: ADMIT Obstetrics & Gynecology; ATTEND Obstetrics & Gynecology
PROC: 0KQM0ZZ Repair Perineum Muscle, Open Approach (ICD-10-PCS; principal; 2017-08-29)
PROC: 10E0XZZ Delivery of Products of Conception, External Approach (ICD-10-PCS; principal; 2017-08-29)
PROC: 0W8NXZZ Division of Female Perineum, External Approach (ICD-10-PCS; principal; 2017-08-29)
DX: O70.1 Second degree perineal laceration during delivery (principal); Z37.0 Single live birth; Z3A.39 39 weeks gestation of pregnancy

== ENCOUNTER 2017-09-02 21:58 | Emergency (ER) | payer BC ==
[~2017-09-02] VITALS: Ht 170.2 cm; Wt 74.9 kg
[~2017-09-02 21:58] MED LIST changes: +CLC100 PO; +FRRS300 PO; +MTR600X PO; +PRENTAB26 PO
[2017-09-02 22:02] VITALS: TEMP 36.6; Ht 170.2 cm; Wt 74.9 kg
--- NOTE | 2017-09-02 22:47 | DIAGNOSTIC IMAGING REPORT ---
CHEST ONE VIEW PORTABLE CLINICAL HISTORY: Atypical chest pain COMPARISON STUDY: 03/09/2017 FINDINGS: The cardiac and mediastinal contours are normal. There is no evidence of focal pulmonary consolidation. There is no evidence of failure. No pleural effusions are visualized.[ IMPRESSION: No active disease in the chest. Electronically signed by: Oli Leary M.D. 09/02/2017 10:46 PM Dictated Date/Time: 09/02/2017 10:41 PM
[2017-09-02 22:49] VITALS: O2SAT 97
[2017-09-02 22:52] LABS: BASO % 0.5 %; BASO ABS # 0.04 K/uL (0-0.2); EOS % 5.5 %; EOS ABS # 0.46 K/uL (0-0.5); HEMATOCRIT 33.2 % (37-47); HEMOGLOBIN 11.4 g/dL (12.0-16.0); IG# 0.03 K/uL (0.00-0.02); LYMPH % 23.2 %; LYMPH ABS # 1.92 K/uL (1.2-3.4); MEAN CELL VOLUME 88.3 fL (80-100); MEAN CORPUSCULAR HEMOGLOBIN 30.3 pg (25-34); MEAN CORPUSCULAR HGB CONC 34.3 g/dl (32-36); MONO % 4.7 %; MONO ABS # 0.39 K/uL (0.11-0.59); NEUT % 65.7 %; NEUT ABS # 5.45 K/uL (1.4-6.5); PLATELET COUNT 209 K/uL (130-400); RED CELL DISTRIBUTION WIDTH CV 13.1 % (11.5-14.5); RED CELL DISTRIBUTION WIDTH SD 41.8 fL (36.4-46.3); WHITE BLOOD COUNT 8.29 K/uL (4.8-10.8)
[2017-09-02 23:13] LABS: ALBUMIN 2.6 gm/dl (3.4-5.0); ALT/SGPT 49 U/L (12-78); AST/SGOT 40 U/L (15-37); BLOOD UREA NITROGEN 14 mg/dl (7-18); CALCIUM 8.8 mg/dl (8.5-10.1); CARBON DIOXIDE 28 mmol/L (21-32); CREATININE 0.77 mg/dl (0.60-1.20); GLUCOSE 91 mg/dl (70-99); POTASSIUM 3.8 mmol/L (3.5-5.1); SODIUM 138 mmol/L (136-145)
[2017-09-02 23:24] LABS: ALKALINE PHOSPHATASE 170 U/L (45-117); TOTAL PROTEIN 7.2 gm/dl (6.4-8.2)
[2017-09-03] MEDS ORDERED: OPTIRAY 320 IV PRN (00:30)
--- NOTE | 2017-09-03 01:17 | EMERGENCY ROOM VISIT NOTE ---
History First contact with patient: 22:06 Chief Complaint: SHORTNESS OF BREATH Stated Complaint: SOB, SORE CALF, GAVE 5 DAYS AGO, Nursing Triage Summary: Last night when patient would get up to nurse baby she had cramping in calves. patient also states she could not get deep breath History of Present Illness The patient is a 27 year old female who presents to the Emergency Room with complaints of difficulty taking a deep breath and bilateral calf soreness for the past few days who gave 5 days ago. No history of blood clots. She is not on control. No recent travel. Patient denies chest pain, fever, chills, abdominal pain, back pain, leg swelling, heavy vaginal bleeding. No history of DVT or PE. No family history of blood clots. No prior heart disease. Patient also comments of intermittent palpitations. Review of Systems An 10 system review of systems was completed with positives and pertinent negatives listed in the HPI. Past Medical/Surgical History Medical Problems: (1) Active labor at term (2) Diarrhea (3) Uterine contractions at greater than 20 weeks of gestation Surgical Problems: (1) S/P tonsillectomy and adenoidectomy Family History Cancer Diabetes mellitus Heart disease Hypertension Social History Smoking Status: Never Smoker Marital Status: Housing Status: lives with significant other Current/Historical Medications Scheduled Docusate Sodium (Docusate Sodium), 100 MG PO BID Ferrous Sulfate (Ferrous Sulfate), 325 MG PO DAILY Multivit/Min/Iron/Fol Ac/Pren ( Vitamin), 1 TAB PO DAILY Scheduled PRN Ibuprofen (Ibuprofen), 600 MG PO Q4H PRN for PAIN, ESTEBAN, CRAMPING OR FEVER Physical Exam Vital Signs Date Time Temp Pulse Resp B/P (MAP) Pulse Ox O2 Delivery O2 Flow Rate FiO2 09/03/17 00:08 47 98 Room Air 09/02/17 23:58 48 17 09/02/17 22:49 97 Room Air 09/02/17 22:49 97 Room Air 09/02/17 22:46 47 09/02/17 22:02 36.6 56 20 133/92 96 Room Air Physical Exam VITALS: Vitals are noted on the nurse's note and reviewed by myself. Vital signs bradycardic GENERAL: Pleasant female, in no acute distress, nondiaphoretic, well-developed well-nourished. SKIN: The skin was without rashes, erythema, edema, or bruising. There is no tenting of the skin. Capillary reflex less than 2 seconds. HEAD: Normocephalic atraumatic. EARS: External auditory canals clear, tympanic membranes pearly king without erythema or effusion bilaterally. EYES: Pupils equal round and reactive to light and accommodation. Conjunctivae without injection, sclerae without icterus. Extraocular movements intact. NOSE: Patent, turbinates without inflammation or discharge. MOUTH: Mucous membranes moist. Pharynx without erythema or exudate. Uvula midline. Airway patent. Tongue does not deviate. NECK: Supple without nuchal rigidity. No lymphadenopathy. No thyromegaly. Cervical spine is nontender. No JVD. HEART: Bradycardic rate and rhythm without murmurs gallops or rubs. LUNGS: Clear to auscultation bilaterally without wheezes, rales or rhonchi. No retractions or accessory muscle use. ABDOMEN: Positive bowel sounds x 4. Normal tympanic percussion. Soft, nontender, without masses or organomegaly. Bazan sign negative. No guarding or rebound tenderness. No CVA tenderness MUSCULOSKELETAL: No muscle atrophy, erythema, or edema noted. NEURO: Patient was alert and oriented to person place and time. Normal sensation to light and sharp touch. No focal neurological deficits. Medical Decision & Procedures Laboratory Results 09/02/17 22:30 Red Blood Count 3.76, Mean Corpuscular Volume 88.3, Mean Corpuscular Hemoglobin 30.3, Mean Corpuscular Hemoglobin Concent 34.3, Mean Platelet Volume 10.0, Neutrophils (%) (Auto) 65.7, Lymphocytes (%) (Auto) 23.2, Monocytes (%) (Auto) 4.7, Eosinophils (%) (Auto) 5.5, Basophils (%) (Auto) 0.5, Neutrophils # (Auto) 5.45, Lymphocytes # (Auto) 1.92, Monocytes # (Auto) 0.39, Eosinophils # (Auto) 0.46, Basophils # (Auto) 0.04 09/02/17 22:30 Test 09/02/17 22:30 White Blood Count 8.29 K/uL (4.8-10.8) Red Blood Count 3.76 M/uL (4.2-5.4) Hemoglobin 11.4 g/dL (12.0-16.0) Hematocrit 33.2 % (37-47) Mean Corpuscular Volume 88.3 fL (80-100) Mean Corpuscular Hemoglobin 30.3 pg (25-34) Mean Corpuscular Hemoglobin Concent 34.3 g/dl (32-36) Platelet Count 209 K/uL (130-400) Mean Platelet Volume 10.0 fL (7.4-10.4) Neutrophils (%) (Auto) 65.7 % Lymphocytes (%) (Auto) 23.2 % Monocytes (%) (Auto) 4.7 % Eosinophils (%) (Auto) 5.5 % Basophils (%) (Auto) 0.5 % Neutrophils # (Auto) 5.45 K/uL (1.4-6.5) Lymphocytes # (Auto) 1.92 K/uL (1.2-3.4) Monocytes # (Auto) 0.39 K/uL (0.11-0.59) Eosinophils # (Auto) 0.46 K/uL (0-0.5) Basophils # (Auto) 0.04 K/uL (0-0.2) RDW Standard Deviation 41.8 fL (36.4-46.3) RDW Coefficient of Variation 13.1 % (11.5-14.5) Immature Granulocyte % (Auto) 0.4 % Immature Granulocyte # (Auto) 0.03 K/uL (0.00-0.02) D-Dimer 5600 ug/L FEU (0-500) Anion Gap 5.0 mmol/L (3-11) Est Creatinine Clear Calc Drug Dose 113.9 ml/min Estimated GFR () 120.9 Estimated GFR (Non- 104.3 BUN/Creatinine Ratio 18.6 (10-20) Calcium Level 8.8 mg/dl (8.5-10.1) Magnesium Level 1.9 mg/dl (1.8-2.4) Total Bilirubin 0.3 mg/dl (0.2-1) Direct Bilirubin < 0.1 mg/dl (0-0.2) Aspartate Amino Transf (AST/SGOT) 40 U/L (15-37) Alanine Aminotransferase (ALT/SGPT) 49 U/L (12-78) Alkaline Phosphatase 170 U/L (45-117) Total Creatine Kinase 159 U/L (26-192) Total Protein 7.2 gm/dl (6.4-8.2) Albumin 2.6 gm/dl (3.4-5.0) Thyroid Stimulating Hormone (TSH) 2.030 uIu/ml (0.300-4.500) ED Course Prior records/ancillary studies reviewed. Triage Nursing notes reviewed. Additional history obtained from the family. The patient's history was concerning for respiratory difficulties. Differential diagnosis: Etiologies such as infections, reactive airway disease, pneumonia, pneumothorax , COPD, CHF, cardiac ischemia, pulmonary embolism, musculoskeletal, gastrointestinal, as well as others were entertained. Physical examination: As above. ER treatment provided: Patient was observed On reassessment the patient felt better. Diagnostic interpretation by me: The electrocardiogram was normal sinus, normal intervals, right axis deviation, no acute ST-T wave changes, Q waves in the inferior leads, rate of 42. EKG compared to prior EKG with no acute changes noted. Impression sinus bradycardia with right axis deviation interpreted by myself The labs revealed negative troponin. Elevated d-dimer. Euthyroid Imaging studies: Chest x-ray with no acute consolidation, pneumothorax free of my interpretation Ultrasound negative for DVT CTA negative PE This appears to be consistent with difficulty catching her breath with unclear etiology. Patient did not have a PE. No DVT. Patient's heart rate remained in the 40s. Patient normally runs in the 50s. She was euthyroid. Mild anemia. She is not taking any other medications besides her iron and multivitamins. Patient was advised to get an outpatient echo this week with cardiology for further evaluation and workup for her bradycardia. Patient was not symptomatic. She was not lightheaded and dizzy or shortness of breath on exertion. Patient just felt she had difficulty catching a breath. Patient had no chest pain. No signs of heart failure. No signs of cardiomyopathy. Patient was neurovascularly and neurologically intact. She is currently breast- feeding. Patient was informed of the risks of IV transmission through the breast milk of 0.01%. Patient was advised to follow-up family care in a few days for cardiology referral for further evaluation workup or here in the ER sooner for chest pain, difficulty breathing, lightheadedness, dizziness, worsening signs or symptoms or as needed. By the evaluation outlined above emergent etiologies such as CHF, cardiac ischemia, pulmonary embolism, reactive airway disease, pneumonia, pneumothorax, musculoskeletal, serious bacterial infections, as well as others were deemed relatively unlikely. The pt informed about the findings as listed above. All questions were answered and pleased with the treatment. Return instructions were outlined and the patient was discharged in stable condition. Referral: The patient was referred back to their primary care physician for follow-up in 2 to 3 days for a recheck of the current condition. Case reviewed with my attending The chart was completed utilizing [employer] Speech voice recognition software. Grammatical errors, random word insertions, pronoun errors, and incomplete sentences are an occassional consequence of this system due to software limitations, ambient noise, and hardware issues. Any formal questions or concerns about the content, text, or information contained within the body of this dictation should be directly addressed to the physician acquisitions assistant for clarification. Medical Decision As above Medication Reconcilliation Current Medication List: was personally reviewed by me Blood Pressure Screening Patient's blood pressure: Normal blood pressure Impression Primary Impression: Dyspnea Additional Impressions: Anemia Bradycardia with 41-50 beats per minute Departure Information Dispostion Home / Self-Care Condition GOOD Referrals No Doctor, Assigned (PCP) Patient Instructions My [facility] Additional Instructions Acetaminophen(Tylenol) may be used for fever or pain. Use 1000mg every six hours as needed. Avoid using more than 3000mg in a 24 hour period. Rest and drink plenty of fluids as tolerated. Continue current medications. Avoid strenuous activities and anything that worsens your symptoms. Resume normal activities once your symptoms resolve. Return to the ER immediately for worsening or persistent breathing problems, lightheadedness, dizziness, fatigue, abdominal pain, vomiting, fevers, chest pains, worsening of your condition, or as needed. Follow up with your primary physician in 2-3 days for a recheck of your current condition. Recommend outpatient echo with cardiology within the week. Case management will help facilitate your follow-up appointments. Problem Qualifiers Primary Impression: Dyspnea Dyspnea type: unspecified Qualified Codes: R06.00 - Dyspnea, unspecified
[2017-09-03 01:33] VITALS: BP 126/81
[2017-09-03 01:38] VITALS: PULSE 46; O2SAT 98
--- NOTE | 2017-09-03 06:30 | DIAGNOSTIC IMAGING REPORT ---
VENOUS DOPPLER LWR EXT BILA HISTORY: Pain. Edema. leg cramping, recent , ? DVT COMPARISON STUDY: None. FINDINGS: There is normal compressibility, flow, and augmentation within the bilateral lower extremity deep venous systems. IMPRESSION: No DVT within the right or left lower extremity. The above report was generated using voice recognition software. It may contain grammatical, syntax or spelling errors. Electronically signed by: Jin Knott M.D. 09/03/2017 6:29 AM Dictated Date/Time: 09/03/2017 6:28 AM
--- NOTE | 2017-09-03 07:04 | DIAGNOSTIC IMAGING REPORT ---
(CHEST FOR PE) ANGIO WITH CT DOSE: 203.93 mGy.cm HISTORY: Dyspnea cough TECHNIQUE: Multiaxial CT images of the chest were performed following the intravenous administration of contrast to evaluate the pulmonary arteries. Maximal intensity projection images were also obtained. A dose lowering technique was utilized adhering to the principles of ALARA. COMPARISON STUDY: None. FINDINGS: There is a normal caliber thoracic aorta with no evidence for dissection. There is no evidence for pulmonary embolus. No pleural effusions. No pneumothorax. The liver and spleen are unremarkable. No mediastinal or hilar lymphadenopathy. The central airways are patent. The lungs are clear. IMPRESSION: No evidence for pulmonary embolus. The lungs are clear. The above report was generated using voice recognition software. It may contain grammatical, syntax or spelling errors. Electronically signed by: Jin Knott M.D. 09/03/2017 7:03 AM Dictated Date/Time: 09/03/2017 7:02 AM
== END 2017-09-03 01:42 | disposition home or self-care (01) ==
LOC: C.EDB 22:00
DX: R06.00 Dyspnea, unspecified (principal); D64.9 Anemia, unspecified; R00.1 Bradycardia, unspecified; Z80.9 Family history of malignant neoplasm, unspecified; Z83.3 Family history of diabetes mellitus; Z82.49 Family history of ischemic heart disease and other diseases of the circulatory system; Z79.899 Other long term (current) drug therapy

== ENCOUNTER 2019-08-13 19:10 | Inpatient (IN) ==
[2019-08-13] MEDS ORDERED: LACTATED RINGER'S 1,000 ML IV PRN (19:54)
[2019-08-13] MEDS ORDERED: OXYTOCIN 30 UNITS/500 ML BAG IV PRN ×2 (19:54→21:07)
--- NOTE | 2019-08-13 19:59 | History & Physical Report ---
Date of Service August 13, 2019 Assessment & Plan (1) Amniotic fluid leakin yo at 39.2 wks with SROM at term, in active labor Desires epidural for pain VSS Afebrile FHR reassuring, GBS negative Admit, monitor, IVF, Labs, anticipate (2) Uterine contractions: History of Present Illness Primary Care Provider: WILLIE Mcleod Patient is 29 yo at 39.2 wks who has been leaking since 1800 and having ctxs soon after leaking has started Clear, no VB +FM Her has been uncomplicated GBS negative Allergies Allergy/AdvReac Type Severity Reaction Status Date / Time No Known Drug Allergies Allergy none Verified 08/13/19 19:22 Home Medications Home Medications Medication Instructions Recorded Confirmed Type PNV cmb#95-ferrous fumarate-FA 1 tab PO DAILY 07/16/18 08/13/19 History [] Patient History Medical History No pertinent past medical history Surgical History History of adenoidectomy History of oral surgery History of tonsillectomy Family History Family/Other Alcohol abuse Paternal great grandfather Grandmother (Paternal) Colon cancer Grandfather (Maternal) Diabetes Myocardial infarction Grandmother (Maternal) Hypertension Thyroid disease Grandfather (Paternal) Kidney disease Other Asthma Cancer Heart disease Social History Preferred Language: [place] Communication Ability: Effective Beliefs That Will Affect Care: None marital status: Current Living Situation: Family current occupational status: employed 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 Other Information That Helps Us Care for You: No Feels Safe at Home: Yes Safety Concerns: Feels Safe At This Time Smoking Status: Never smoker Hx Alcohol Use: No Hx Substance Use: No OB History in 2018 by myself Review of Systems All systems reviewed & are unremarkable except as noted in HPI & below Physical Exam Constitutional: WD/WN, vitals as above well developed and + acute distress (active labor) Genitourinary: OB Exam Abdomen: + vertex and + regular contractions OB Exam Monitor Tracing: + category I VE; 7/ 80%/ -1 Results & Data Vital Signs (Past 12 Hours) Vital Signs Pulse BP 08/13/19 19:44 71 149/75 H
[2019-08-13] MEDS ORDERED: ePHEDrine sulfate 50 MG/ML AMP ONE (20:21)
[2019-08-13] MEDS ORDERED: fentaNYL citrate 100 MCG/2 ML VIAL ONE (20:22)
[2019-08-13] MEDS ORDERED: fentaNYL 2MCG/ML ROPIV 1.25MG/ML 100 ML BAG EPI ONE (20:22)
[2019-08-13] MEDS ORDERED: BUPIVACAINE 0.25% 30 ML VIAL ONE (20:22)
[2019-08-13 20:37] LABS: Hematocrit (blood only) 36.7 % (37-47); Hemoglobin 12.6 g/dL (12.0-16.0); Mean Corpuscular Hemoglobin 30.3 pg (25-34); Mean Corpuscular Volume 88.2 fL (80-100); Mean Platelet Volume 11.2 fL (7.4-10.4); Platelet Count 185 K/uL (130-400); RDW Coefficient of Variation 12.9 % (11.5-14.5); RDW Standard Deviation 41.5 fL (36.4-46.3); Red Blood Count 4.16 M/uL (4.2-5.4); White Blood Count 9.67 K/uL (4.8-10.8)
[2019-08-13] MEDS ORDERED: NALOXONE HCL 0.4 MG/1 ML VIAL/CARP IV PRN (20:51)
[2019-08-13] MEDS ORDERED: fentaNYL 2MCG/ML ROPIV 1.25MG/ML 100 ML BAG EPI PRN (20:51)
[2019-08-13] MEDS ORDERED: ePHEDrine sulfate 50 MG/ML AMP IV PRN (20:51)
[2019-08-13] MEDS ORDERED: NALOXONE HCL 1 MG in SODIUM CHLORIDE 0.9% 1000ML 1,000 ML IV PRN (20:51)
[2019-08-13] MEDS ORDERED: PROMETHAZINE HCL 6.25 MG in SODIUM CHLORIDE 0.9% 50 ML IV PRN (20:51)
[2019-08-13] MEDS ORDERED: ONDANSETRON INJ 2 MG/ML 2 ML VIAL IV PRN (20:51)
[2019-08-13] MEDS ORDERED: DiphenhydrAMINE HCL 50 MG/ML VIAL IV PRN (20:51)
[2019-08-13] MEDS ORDERED: NALBUPHINE HCL INJ 10 MG/ML AMP IV PRN (20:51)
--- NOTE | 2019-08-13 20:51 | Anesthesiology Consultation ---
Date of Service August 13, 2019 Assessment & Plan Chart Review Chart Review: Patient NOT seen in Pre Admission Testing and Acceptable Risk for Labor Epidural Consults Requested none ASA ASA2 Proposed Anesthesia Anesthesia Type: Labor Epidural and CSE Risk / Benefits Reviewed With: PT / POA / Parent / Guardian, Accepts Plan and Informed Consent Obtained History Height/Weight Height: 5 ft 7 in Weight: 80.739 kg Allergies Allergy/AdvReac Type Severity Reaction Status Date / Time No Known Drug Allergies Allergy none Verified 08/13/19 19:22 Medications Home Medications Medication Instructions Recorded Confirmed Last Taken PNV cmb#95-ferrous fumarate-FA 1 tab PO DAILY 07/16/18 08/13/19 08/13/19 [] Active Medications Generic Name Dose Route Start Last Admin Trade Name Freq PRN Reason Stop Dose Admin Lactated Ringer's 1,000 mls @ 999 mls/hr 08/13/19 19:54 08/13/19 20:08 Lr IV 08/15/19 19:53 999 mls/hr .Q1H1M PRN Administration L&D Protocol Protocol NPO Date Last Intake of Fluids: 08/13/19 Time Last Intake of Fluids: 18:30 Date Last Intake of Solids: 08/13/19 Time Last Intake of Solids: 18:30 Past Medical History Medical History No pertinent past medical history Exercise / Class Metabolic Activity II 4-5 Yardwork/Stairs/Walk up hill Past Family History Family History Family/Other Alcohol abuse Paternal great grandfather Grandmother (Paternal) Colon cancer Grandfather (Maternal) Diabetes Myocardial infarction Grandmother (Maternal) Hypertension Thyroid disease Grandfather (Paternal) Kidney disease Other Asthma Cancer Heart disease Past Surgical History Surgical History History of adenoidectomy History of oral surgery History of tonsillectomy Past Anesthesia History No Hx of Anesthesia Complications and No Family Hx of Anesthesia Complications History of PONV No Hx of PONV and No Hx of Motion Sickness Social History Smoking Status: Never smoker Hx Alcohol Use: No Alcohol type: beer and wine Hx Substance Use: No Physical Exam Vital Signs Last Vital Signs Temp 36.8 C 08/13/19 20:19 Pulse 79 08/13/19 20:46 Resp 20 08/13/19 19:36 BP 109/77 08/13/19 20:46 Pulse Ox 100 08/13/19 20:46 ENMT Mouth: no dentition abnormality Thyromental Distance: > or= 3.5 Finger Breadths Mallampati Class: II Neck normal visual inspection Respiratory normal respiratory effort Auscultation: lungs clear to auscultation bilaterally Cardiovascular Rate/Rhythm: regular rate and regular rhythm Psychiatric Orientation: alert Testing Laboratory Results 08/13/19 20:19
[2019-08-13] MEDS ORDERED: DIPHTHERIA/TETANUS/PERTUSSIS 0.5 ML SYR/VIAL IM ONE (21:07)
[2019-08-13] MEDS ORDERED: MEASLES, MUMPS & RUBELLA VIRUS VIAL SQ ONE (21:07)
[2019-08-13] MEDS ORDERED: ACETAMINOPHEN 325 MG TAB PO PRN (21:07)
[2019-08-13] MEDS ORDERED: BENZOCAINE 20% AER SPR 82.5 GM CAN EXT PRN (21:07)
[2019-08-13] MEDS ORDERED: SUPERCREAM 0.870% 15 GM JAR EXT PRN (21:07)
[2019-08-13] MEDS ORDERED: HYDROCORTISONE ACETATE 25 MG SUPP PR PRN (21:07)
[2019-08-13] MEDS ORDERED: bisacodyL 10 MG SUPP PR PRN (21:07)
[2019-08-13 21:11] LABS: Mean Corpuscular Hgb Conc 34.3 g/dL (32-36)
[2019-08-13] MEDS ORDERED: LACTATED RINGER'S 1,000 ML IV SCH (21:15)
--- NOTE | 2019-08-13 23:19 | Delivery Summary ---
DATE OF OPERATION: 08/13/2019 TIME OF DELIVERY OF BABY: 2052 hours. DETAILS OF DELIVERY: The patient was fully dilated and desired to push. She pushed through 3 contractions and delivered the head without difficulty. Shoulders were delivered with minimal traction. Baby was handed off to the mother where mouth and nose were suctioned. Cord was clamped x2 and cut at 1-minute delay. Cord blood was obtained. It was 3-vessel cord. Vagina and perineum were checked for laceration, there were no lacerations found, it was intact. Placenta was found to be in the vagina and delivered spontaneously as intact and complete. Uterus was explored and found to be empty. Lower segment was cleared of all clots and debris. Fundus was firm. EBL was 100 mL. Mom and baby tolerated the procedure well. Sponge, lap, needle count was correct x3. Baby was a viable female , Apgars 8/9, weight is 3695 gr. No complications happened and I was present during whole procedure. I attest to the content of the Intraoperative Record and any orders documented therein. Any exceptions are noted below. ALYSED
[2019-08-14] MEDS: IBUPROFEN 600 MG TAB PO PRN ×4 (00:26→21:36)
--- NOTE | 2019-08-14 00:42 | Anesthesia Procedure Note ---
Date of Service August 14, 2019 Anesthesia Post Epidural Note Vital Signs Vital Signs: Temp Pulse Resp BP Pulse Ox 37.1 C 61 18 126/61 92 08/13/19 23:05 08/13/19 23:08 08/13/19 23:05 08/13/19 23:08 08/13/19 21:21 Pain Intensity Abdomen: Pain Intensity: 1 Notes Mental Status: alert / awake / arousable Nausea / Vomiting: adequately controlled Pain: adequately controlled Airway Patency, RR, SpO2: stable & adequate BP & HR: stable & adequate Hydration State: stable & adequate Neuraxial Anesthesia: was administered and sensory block is resolving Anesthetic Complications: no major complications apparent and Pt Satisfied with anesthetic care Epidural: Removed without complications and With tip intact
[2019-08-14 06:35] LABS: Hematocrit (blood only) 34.3 % (37-47); Hemoglobin 11.3 g/dL (12.0-16.0); Mean Corpuscular Hemoglobin 29.5 pg (25-34); Mean Corpuscular Hgb Conc 32.9 g/dL (32-36); Mean Corpuscular Volume 89.6 fL (80-100); Platelet Count 178 K/uL (130-400); RDW Standard Deviation 42.3 fL (36.4-46.3); Red Blood Count 3.83 M/uL (4.2-5.4); White Blood Count 12.34 K/uL (4.8-10.8)
[2019-08-14] MEDS ORDERED: FERROUS SULFATE 325 MG TAB PO SCH (08:00)
[2019-08-14] MEDS ORDERED: PRENATAL VITAMIN 1 TAB PO SCH (08:00)
[2019-08-14] MEDS: DOCUSATE SODIUM 100 MG CAP PO SCH ×2 (08:31→20:26)
--- NOTE | 2019-08-14 10:31 | Obstetrical Progress Note ---
Date of Service August 14, 2019 Assessment & Plan (1) Normal course: a/p PPD1 pt doing well pt wishes to go home this evening d/c home Subjective Ambulation: ambulating normally Voiding: no voiding problems Passing Gas:: Yes Diet Tolerance:: regular diet Lochia:: Small Feeding Type:: breast feeding Review of Systems All systems reviewed & are unremarkable except as noted in HPI & below Physical Exam Constitutional WD/WN, vitals as above well developed and well nourished Eyes PERRL, conjunctivae normal, anicteric sclerae Neck trachea midline, no thyromegaly Respiratory normal respiratory effort, lungs clear to auscultation Auscultation: no crackles, no rales and no wheezes Cardiovascular RRR, no murmur, no edema Gastrointestinal (Abdomen) normal bowel sounds, soft, nontender, no hepatosplenomegaly Uterus is below umbilicus Musculoskeletal no cyanosis or clubbing, extremities motor strength 5/5 Skin no rashes, warm and dry Neurologic patellar DTR's 2+ bilat, sensation intact Psychiatric A+Ox3, euthymic affect Genitourinary normal external appearance Results & Data Vital Signs (Past 12 Hours) Vital Signs Temp Pulse Pulse Resp BP BP BP 08/14/19 07:20 36.6 C 56 L 14 113/64 08/14/19 03:30 36.8 C 48 L 16 136/77 147/77 H 08/13/19 23:55 37.2 C 85 16 150/76 H 08/13/19 23:08 61 126/61 08/13/19 23:05 37.1 C 18 08/13/19 23:04 55 L 134/78 08/13/19 22:49 55 L 143/70 H 08/13/19 22:38 37.2 C 54 L 18 160/82 H 08/13/19 22:34 54 L 160/82 H Pulse Ox 08/14/19 07:20 97 08/14/19 03:30 96 08/13/19 23:55 97 08/13/19 23:08 08/13/19 23:05 08/13/19 23:04 08/13/19 22:49 08/13/19 22:38 08/13/19 22:34
--- NOTE | 2019-08-14 13:30 | Electrocardiogram Report ---
Test Reason : Blood Pressure : / mmHG Vent. Rate : 047 BPM Atrial Rate : 047 BPM P-R Int : 130 ms QRS Dur : 088 ms QT Int : 460 ms P-R-T Axes : 012 087 065 degrees QTc Int : 407 ms Sinus bradycardia Otherwise normal ECG When compared with ECG of 03-SEP-2017 00:36, No significant change was found Confirmed by Reggie Bravo ([id number]) on 08/14/2019 1:30:06 PM Referred By: Varun Molina Confirmed By:Reggie Bravo
[2019-08-14] MEDS ORDERED: bisacodyL 5 MG TABEC PO SCH (20:00)
== END 2019-08-14 21:40 | disposition home or self-care (01) | DRG 807 ==
LOC: OPB 19:10 → 4S1 19:11 → 4S2 23:50

== ENCOUNTER 2023-03-23 09:27 | Inpatient (IN) ==
--- OUTSIDE RECORDS SUMMARY | 2023-03-23 09:34 | External Medical Summary | Summary of Care ---
Author Name Unknown Organization [facility] Address [address] [facility] [place] [address] Phone [phone] Care Team Providers Care Wrapper Leaf Inspector Name Role Phone Elton Oliveira MD Primary Care Provide r Reason for Visit * Reason Comments Return Visit Encounter Details Date Type Department Care Team (Late st Contact Info) Description 03/12/2023 11:45 AM EST Office Visit Gynecology/Obstetric s Mya Golden [address] [place] [phone] Ela Castillo PA-C [address] [place] [phone] Normal in third trimester*; Anemia in , third trimester; GBS carrier Allergies No known active allergiesdocumented as of this encounter (statuses as of 03/12/2023) Medications Medication Sig Dispensed Refills Start Date End Date Status 28-0.8 MG Oral Tablet Take by mouth. 0 Active Docusate Sodium 100 MG Oral Capsule Take 1 Capsule by mouth in the morning and 1 Capsule before bedtime. 0 Active Calcium Carbonate Antacid 500 MG Oral Tablet Chewable Take 1 Tablet by mouth in the morning. 0 Active Breast Pump Dispense double electric breast pump. Dx Z39.1 1 Each 0 01/22/2023 Active documented as of this encounter (statuses as of 03/12/2023) Active Problems Problem Noted Date Diagnosed Date GBS carrier 02/26/2023 Anemia in , third trimester 12/19/2022 Overview: 11.6-encouraged either iron rich foods or beginning iron supplements. Normal 09/16/2022 Advance directive declined by patient 04/16/2017 Overview: No, Advance Directive brochure offered, patient declined. Estimated Date of Delivery Comme nts Yes 03/24/2023 Based on last me nstrual period of 06/17/2022 (Exact Date) documented as of this encounter (statuses as of 03/12/2023) Resolved Problems Problem Noted Date Diagnosed Date Resolved Date Supervision of other normal 12/30/2018 08/13/2019 Last Assessment & Plan: 06/16/2019 Tdap Vaccine administered per clinic protocol. Pt given VIS(vaccine information sheet) Noelle Casper LPN Abnormal quad screen 04/18/2017 018 Overview: DS risk , normal anatomy scan Decided not to proceed with Pamela , normal first 01/14/201707/2017 documented as of this encounter (statuses as of 03/12/2023) Immunizations Name Administration Dates Next Due SEASONAL INFLUENZA, PF, 6 M & Above, IM , (FLULAVAL or FLUZONE) 02/07/2023 TDAP (age 10 and older)(Boostrix) 01/08/2023,,07/01/2017 documented as of this encounter Social History Tobacco Use Types Packs/Day Years Used Date Smoking Tobacco: Never Smokeless Tobacco: Never Alcohol Use Standard Drinks/Week Comments No 0 (1 standard drink = 0.6 oz pur e alcohol) none since PHQ-2 Answer Date Recorded PHQ-2 Score 2 01/22/2019 Hunger Vital Sign Answer Date Recorded Within the past 12 months, y ou worried that your food would run out before you got the money to buy more. Never true 08/09/19 23 Within the past 12 months, t he food you bought just didn't last and you didn't have money to get more. Never true 08/08/2022 [place] Depression Scale Answer Date Recorded [place] Depression Scale Total 8 02/07/2023 The thought of harming myself has occurred to me . Never 02/07/2023 Estimated Date of Delivery Comme nts Yes 03/24/2023 Based on last me nstrual period of 06/17/2022 (Exact Date) Sex and Gender Information Value Date Recorded Sex Assigned at Female 08/08/2022 11:29 AM EDT Gender Identity Female 08/08/2022 11:29 AM EDT Sexual Orientation Straight 08/08/2022 11 :29 AM EDT Job Start Date Occupation Industry Not on file Not on file Not on file documented as of this encounter Last Filed Vital Signs Vital Sign Reading Time Taken Comments Blood Pressure 98/56 03/12/2023 11:37 AM EST Pulse - - Temperature - - Respiratory Rate - - Oxygen Saturation - - Inhaled Oxygen Concentration - - Weight 80.3 kg (177 lb) 03/12/2023 11:37 AM EST Height 170.2 cm (5' 7") 03/12/2023 11:37 AM EST Body Mass Index 27.72 03/12/2023 11:37 AM EST documented in this encounter Progress Notes * Ela Castillo PA-C - 03/12/2023 12:12 PM EST 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 She ate something and felt better. Symptoms have not returned. Denies bleeding, LOF. No regular contractions. Has been having some what she think is BH ctx at night. No timing.No menstrual like cramping. Baby is active. Reviewed IOL, pt agreeable to scheduling. Scheduled for first available 04/01/2023. Given instructions. Has number to call. Advised call right away if concerns for labor. Pt states delivery was about 3 hour from ROM to delivery. RTC in 1 week Ela Castillo PA-C documented in this encounter Nursing Notes * Jen Harris LPN - 03/12/2023 11:43 AM EST 38w2d Denies concerns. documented in this encounter Plan of Treatment Upcoming Encounters Date Type Department Care Team (Late st Contact Info) Description 03/18/2023 11:45 AM EST Office Visit Gynecology/Obstetrics Mya Golden [address] [place] [phone] Danita Clark CRNP [address] [place] [phone] Health Maintenance Due Date Last Done Comments Hepatitis B (3 of 3 - 3-dose series) 05/29/1998 04/03/1998, 04/03/1997 HPV/Co-Test 2018 Depression Screening 01/20/2020 01/19/2019 COVID-19 Vaccine ( season) 2022 01/26/2021, 12/29/2020 Cervical Cancer Screening 08/14/2024 Pap Smear 08/14/2024 08/14/2021, 05/30, 04/03/2015, Additional history exists DTaP,Tdap,and Td Vaccines (6 - Td or Tdap) 01/08/2033 01/08/2023, 06/16/2019, 07/01/2017, Additional history exists Influenza Vaccine (FLU shot) Completed , 01/26/2019, 01/25/2017, Additional history exists GARDASIL-HPV IMMUNIZATION SERIES Aged Out No longer eligible based on patient's age to complete this topic MENINGOCOCCAL (MENACTRA/MENVEO) Aged Out No longer eligible based on patient's age to complete this topic Pneumococcal Vaccine: Pediatrics (0 to 5 Years) and At-Risk Patients (6 to 64 Years) Aged Out No longer eligible based on patient's age to complete this topic documented as of this encounter Medical Devices Not on filedocumented as of this encounter Visit Diagnoses Diagnosis Normal in third trimester- Primary Anemia in , third trimester 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
--- OUTSIDE RECORDS SUMMARY | 2023-03-23 09:34 | External Medical Summary | Summary of Care ---
Author Name Unknown Organization [facility] Address [address] [facility] [place] [address] Phone [phone] Care Team Providers Care Chain Puller Name Role Phone Elton Oliveira MD Primary Care Provide r Reason for Visit * Reason Onset Date Comments Return Visit Medication Administration 02/07/2023 Flu an d/or Pneumo Inj Encounter Details Date Type Department Care Team Description 02/07/2023 Office Visit Gynecology/Obstetrics [facility] [address] [place] [address] Danita Clark CRNP [address] [place] [phone] Normal in third trimester*; Anemia in , third trimester; Need for prophylactic vaccination and inoculation against influenza Allergies No known active allergiesdocumented as of this encounter (statuses as of 02/07/2023) Medications Medication Sig Dispensed Refills Start Date [...] as of this encounter (statuses as of 02/07/2023) Active Problems Problem Noted Date Anemia in , third trimester Overview: 11.6-encouraged either iron rich foods or beginning iron supplements. Normal 09/16/2022 Advance directive declined by patient Overview: No, Advance Directive brochure offered, patient declined. Estimated Date of Delivery Comme nts Yes 03/24/2023 Based on last me nstrual period of 06/17/2022 (Exact Date) documented as of this encounter (statuses as of 02/07/2023) Resolved Problems Problem Noted Date Resolved Date Supervision of other normal 12/30/2018 08/13/2019 Last Assessment & Plan: 06/16/2019 Tdap Vaccine administered per clinic protocol. Pt given VIS(vaccine information sheet) Noelle Casper LPN Abnormal quad screen 04/18/2017 08/29/2017 Overview: DS risk , normal anatomy scan Decided not to proceed with Pamela , normal first 01/14/2017 08/30/19 18 documented as of this encounter (statuses as of 02/07/2023) Immunizations Name Administration Dates Next Due SEASONAL INFLUENZA, PF, 6 M & Above, IM , (FLULAVAL or FLUZONE) 02/07/2023 TDAP (age 10 and older)(Boostrix) 01/08/2023,,07/01/2017 documented as of this encounter Social History Tobacco Use Types Packs/Day Years Used Date Smoking Tobacco: Never Smokeless Tobacco: Never Alcohol Use Standard Drinks/Week Comments No 0 (1 standard drink = 0.6 oz pur e alcohol) none since Food Insecurity Answer Date Recorded Within the past 12 months, y ou worried that your food would run out before you got money to buy more. Never true 08/08/2022 Within the past 12 months, t he food you bought just didn't last and you didn't have money to get more. Never true 08/08/2022 Estimated Date of Delivery Comme nts Yes 03/24/2023 Based on last me nstrual period of 06/17/2022 (Exact Date) Sex Assigned at Date Recorded Female 08/08/2022 11:29 AM EDT Job Start Date Occupation Industry Not on file Not on file Not on file documented as of this encounter Last Filed Vital Signs Vital Sign Reading Time Taken Comments Blood Pressure 102/68 02/07/2023 11:41 AM EDT Pulse - - Temperature - - Respiratory Rate - - Oxygen Saturation - - Inhaled Oxygen Concentration - - Weight 76.2 kg (168 lb) 02/07/2023 11:41 AM EDT Height 170.2 cm (5' 7") 02/07/2023 11:41 AM EDT Body Mass Index 26.31 02/07/2023 11:41 AM EDT documented in this encounter Progress Notes * WILLIE Vieyra - 02/07/2023 11:51 AM EDT 33w4d Doing well, good movement. Some cramping but nothing consistent. Denies bleeding, leaking. Given labor instructions. Accepts flu shot today. 2 week return WILLIE Garcia * Jen Velasco LPN - 02/07/2023 11:42 AM EDT 33w4d Given labor instructions. Denies concners. documented in this encounter Nursing Notes * Jen Velasco LPN - 02/07/2023 11:53 AM EDT Patient here for flu injection. Patient doing well no complaints. Injection given IM as ordered. Patient tolerated well. Patient to follow up as directed. Patient instructed to call if any complications. Patient verbalized understanding of instructions given and her follow up appt for MAURA. Injection site: Left Deltoid Medication Source: Dispensed stock medication documented in this encounter Plan of Treatment Upcoming Encounters Date Type Specialty Care Team Description 02/24/2023 Office Visit Gynecology Obstetrics Julio C Swartz CNM [address] [phone] 03/04/2023 Office Visit Gynecology Obstetrics BackerDanita CRNP [address] [place] [phone] 03/11/2023 Office Visit Gynecology Obstetrics BackDanita bhatt CRNP [address] [place] [phone] 03/18/2023 Office Visit Gynecology Obstetrics BackDanita bhatt CRNP [address] [place] [address] Health Maintenance Due Date Last Done Comments Hepatitis B (1 of 3 - 3-dose series) 1988 HPV/Co-Test 2018 Depression Screening 01/20/2020 01/19/2019 COVID-19 [...] trimester- Primary Anemia in , third trimester Need for prophylactic vaccination and inoculation against influenza documented in this encounter Care Teams Chain Puller Relationship Specialty Start Date End Date Elton Oliveira MD [address] [place], [place] [phone] PCP - General Family Medicine 04/03/15 documented as of this encounter
--- OUTSIDE RECORDS SUMMARY | 2023-03-23 09:34 | External Medical Summary | Summary of Care ---
Author Name Unknown Organization [facility] Address [address] [facility] [place] [address] Phone [phone] Care Team Providers Care Computer Typesetter Name Role Phone Elton Oliveira MD Primary Care Provide r Encounter Details Date Type Department Care Team (Late st Contact Info) Description 03/11/2023 Telephone Gynecology/Obstetrics [facility] [address] [place] [address] Tyrone Simmons MD [address] [place] [phone] Allergies No known active allergiesdocumented as of [...] proceed with Pamela , normal first 01/14/2017 05/0 07/2017 documented as of this encounter (statuses as [...] money to get more. Never true 08/08/2022 [place] Depression Scale Answer Date Recorded [place] Depression Scale Total 8 02/07/2023 The thought [...] on file documented as of this encounter Miscellaneous Notes * Telephone Encounter - Ela Castillo PA-C - 03/12/2023 9:31 AM EST Noted, agree with advise given. Will follow up with patient at visit today. * Telephone Encounter - Hope Barnes LPN - 03/11/2023 12:24 PM EST Pt calling in stating she was at work today and started feeling very hot almost like a hot flash and felt a bit faint. 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 She states school nurse had her get something to eat and push fluids. She states that has been helping. Advised pt to continue to push fluids, small frequent meals/snack and to call if symptoms to not continue to improve or if worsening. Will send to Ela as FYI for visit tomorrow. documented in this encounter Plan of Treatment Upcoming Encounters Date Type Department Care Team (Late st Contact Info) Description 03/12/2023 11:45 AM EST Office Visit Gynecology/Obstetrics [facility] [address] [place] [phone] Ela Castillo PA-C [address] [place] [phone] 03/18/2023 11:45 AM EST Office Visit Gynecology/Obstetrics [facility] [address] [place] [address] Backer, WILLIE Collier [address] [place] [phone] Health Maintenance Due Date Last Done Comments Hepatitis B (3 of 3 - 3-dose series) 05/29/1998 04/03/1998, 04/03/1997 HPV/Co-Test 2018 Depression Screening 01/20/2020 01/19/2019 COVID-19 Vaccine (3 - season) 2022 01/26/2021, 12/29/2020 Cervical Cancer Screening [...] Not on filedocumented as of this encounter Care Teams Computer Typesetter Relationship Specialty Start Date End Date Elton Oliveira MD [address] [place] [id number] PCP - General Family Medicine 04/03/15 documented as of this encounter
--- OUTSIDE RECORDS SUMMARY | 2023-03-23 09:34 | External Medical Summary | Summary of Care ---
Author Name Unknown Organization [facility] Address [address] [facility] [place] [address] Phone [phone] Care Team Providers Care Cook Soup Name Role Phone Elton Oliveira MD Primary Care Provide r Reason for Visit * Reason Comments Return Visit Encounter Details Date Type Department Care Team Description 01/22/2023 [facility] [address] [place] [address] Juana Gongora CRNP [address] [place] [address] Encounter for supervision of other normal , second trimester*; Anemia in , third trimester Allergies No known active allergiesdocumented as of this encounter (statuses as of 01/22/2023) Medications Medication Sig Dispensed Refills Start Date End Date Status 28-0.8 MG Oral Tablet Take by mouth. 0 Active Docusate Sodium 100 MG Oral Capsule Take 1 Capsule by mouth in the morning and 1 Capsule before bedtime. 0 Active Calcium Carbonate Antacid 500 MG Oral Tablet Chewable (Tums) Take 1 Tablet by mouth in the morning. 0 Active Breast Pump Dispense double electric breast pump. Dx Z39.1 1 Each 0 01/22/2023 Active documented as of this encounter (statuses as of 01/22/2023) Active Problems Problem Noted Date Anemia in , third trimester Overview: 11.6-encouraged either iron rich foods or beginning iron supplements. Encounter for supervision of other hetal l , second trimester 09/16/2022 Advance directive declined by patient Overview: No, Advance Directive brochure offered, patient declined. Estimated Date of Delivery Comme nts Yes 03/24/2023 Based on last me nstrual period of 06/17/2022 (Exact Date) documented as of this encounter (statuses as of 01/22/2023) Resolved Problems Problem Noted Date Resolved Date Supervision of other normal 12/30/2018 08/13/2019 Last Assessment & Plan: 06/16/2019 Tdap Vaccine administered per clinic protocol. Pt given VIS(vaccine information sheet) Noelle aCsper LPN Abnormal quad screen 04/18/2017 08/29/2017 Overview: DS risk , normal anatomy scan Decided not to proceed with Pamela , normal first 01/14/2017 08/30/19 18 documented as of this encounter (statuses as of 01/22/2023) Immunizations Name Administration Dates Next Due TDAP (age 10 and older)(Boostrix) 01/08/2023,,07/01/2017 documented [...] Sign Reading Time Taken Comments Blood Pressure 100/60 01/22/2023 3:18 PM EDT Pulse - - Temperature - - Respiratory Rate - - Oxygen Saturation - - Inhaled Oxygen Concentration - - Weight 75.6 kg (166 lb 9.6 oz) 01/22/2023 3:18 P M EDT Height 170.2 cm (5' 7") 01/22/2023 3:18 PM EDT Body Mass Index 26.09 01/22/2023 3:18 PM EDT documented in this encounter Progress Notes * WILLIE Aguilar - 01/22/2023 3:49 PM EDT 31w2d Discussed meds safe for heartburn. Breast pump rx to be sent by this office. Baby moving well. No contractions or bleeding, no LOF. Partner planning vasectomy. WILLIE Aguilar * Josefa Lentz LPN - 01/22/2023 3:22 PM EDT 31w2d Breast pump prescription, hip pain recommendations. documented in this encounter Plan of Treatment Upcoming Encounters Date Type Specialty Care Team Description 02/07/2023 Office Visit Gynecology Obstetrics Danita Clark CRNP [address] [place] [address] 02/24/2023 Office Visit Gynecology Obstetrics Julio C Swartz, [address] [place] [address] 03/04/2023 Office Visit Gynecology Danita Tim CRNP [address] [place] [address] 03/11/2023 Office Visit Gynecology Obstetrics Danita Clark CRNP [address] [place] [address] 03/18/2023 Office Visit Gynecology Obstetrics Backer, WILLIE Collier [address] [facility] [place] [address] Health Maintenance Due Date Last Done Comments Hepatitis B (1 of 3 - 3-dose series) 1988 HPV/Co-Test 2018 Depression Screening 01/20/2020 01/19/2019 COVID-19 Vaccine (3 - Moderna series) 03/23/2021 01/26/2021, 12/29/2020 Influenza Vaccine (FLU shot) (#1) 2022 01/26/2019, 01/25/2017, 01/25/2017, Additional history exists Cervical Cancer Screening 08/14/2024 Pap Smear 08/14/2024 08/14/2021, 05/30, 04/03/2015, Additional history exists DTaP,Tdap,and Td Vaccines (6 - Td or Tdap) 01/08/2033 01/08/2023, 06/16/2019, 07/01/2017, Additional history exists GARDASIL-HPV IMMUNIZATION SERIES Aged [...] as of this encounter Visit Diagnoses Diagnosis Encounter for supervision of other normal , second trimester- Primary Anemia in , third trimester documented in this encounter Care Teams Cook Soup Relationship Specialty Start Date End Date Elton Oliveira MD [address] [place] [address] [place] [address] PCP - General Family Medicine 04/03/15 documented as of this encounter
--- OUTSIDE RECORDS SUMMARY | 2023-03-23 09:34 | External Medical Summary ---
Author Name Unknown Address Unknown Organization K01:[facility] [place], [place] - [address] [facility] [address] Laboratory Report Ordering Provider Test Date Status WILDNATE Adam 02/24/2023 16:01:39 Final Observation Date Value Abnormality Reference (Units ) Status Streptococcus agalactiae DNA [Presence] in Specimen by ERIC with probe detection 02/24/2023 16:01:39 Positive Abnormal Negative Final Group B Streptococcus detect ed by culture-enhanced PCR (amplified probe).
The collection of vaginal/rectal swab specimen combinations (FDA approved specimen type) is optimal for the detection of Group B Streptococcus. Single source collection (vaginal only or rectal only) or alternate specimen sources may lead to false negative results. Performing Location [facility] [place] [place] - [address] [address]
--- OUTSIDE RECORDS SUMMARY | 2023-03-23 09:34 | External Medical Summary | Summary of Care ---
Author Name Unknown Organization [facility] Address [address] [facility] [place] [address] Phone [phone] Care Team Providers Care Shopfitter Name Role Phone Elton Oliveira MD Primary Care Provide r Reason for Visit * Reason Comments Return Visit Encounter Details Date Type Department Care Team (Late st Contact Info) Description 03/18/2023 11:45 AM EST Office Visit [facility] [address] [place] [address] Danita Clark CRNP [address] [place] [address] Normal in third trimester*; Anemia in , third trimester; GBS carrier Allergies No known active allergiesdocumented as of this encounter (statuses as of 03/18/2023) Medications Medication Sig Dispensed Refills Start Date [...] as of this encounter (statuses as of 03/18/2023) Active Problems Problem Noted Date Diagnosed Date [...] as of this encounter (statuses as of 03/18/2023) Resolved Problems Problem Noted Date Diagnosed Date [...] as of this encounter (statuses as of 03/18/2023) Immunizations Name Administration Dates Next Due SEASONAL [...] money to get more. Never true 08/08/2022 [place] Depression Scale Answer Date Recorded [place] Depression Scale Total 8 02/07/2023 The thought [...] Sign Reading Time Taken Comments Blood Pressure 100/58 03/18/2023 11:38 AM EST Pulse - - Temperature - - Respiratory Rate - - Oxygen Saturation - - Inhaled Oxygen Concentration - - Weight 82.1 kg (181 lb) 03/18/2023 11:38 AM EST Height - - Body Mass Index 28.35 03/12/2023 11:37 AM EST documented in this encounter Progress Notes * Hope Barnes LPN - 03/18/2023 11:38 AM EST 39w1d Denies vaginal bleeding/rom + movement * Danita Clark CRNP - 03/18/2023 11:38 AM EST 39w1d Some BH ctx, nothing regular. Denies leaking/bleeding. Good movement. Has an induction for post-dates. Estimate ~7lbs by [facility]ie[facility]. 1 week return WILLIE Garcia documented in this encounter Plan of Treatment Upcoming Encounters Date Type Department Care Team (Late st Contact Info) Description 03/27/2023 1:30 PM EST [facility] [address] [place] [address] Juana Gongora CRNP [address] [place] [address] Health Maintenance Due Date Last Done Comments Hepatitis B (3 of 3 - 3-dose series) 05/29/1998 04/03/1998, 04/03/1997 HPV/Co-Test 2018 Depression Screening 01/20/2020 01/19/2019 COVID-19 Vaccine (3 - 2022- season) 2022 01/26/2021, 12/29/2020 Cervical Cancer Screening [...] streptococcus documented in this encounter Care Teams Shopfitter Relationship Specialty Start Date End Date Elton Oliveira MD [address] [place] [address] [place] [address] PCP - General Family Medicine 04/03/15 documented as of this encounter
--- OUTSIDE RECORDS SUMMARY | 2023-03-23 09:34 | External Medical Summary | Summary of Care ---
Author Name Unknown Organization [facility] Address [address] [facility] [place] [address] Phone [phone] Care Team Providers Care Kitchen Aide Name Role Phone Elton Oliveira MD Primary Care Provide r Encounter Details Date Type Department Care Team (Late st Contact Info) Description 03/11/2023 Telephone Gynecology/Obstetrics [facility] [address] [place] [address] Tyrone Simmons MD [address] [place] [phone] Allergies No known active allergiesdocumented as of this encounter (statuses as of 03/11/2023) Medications Medication Sig Dispensed Refills Start Date [...] as of this encounter (statuses as of 03/11/2023) Active Problems Problem Noted Date Diagnosed Date [...] as of this encounter (statuses as of 03/11/2023) Resolved Problems Problem Noted Date Diagnosed Date [...] as of this encounter (statuses as of 03/11/2023) Immunizations Name Administration Dates Next Due SEASONAL [...] money to get more. Never true 08/08/2022 [place] Depression Scale Answer Date Recorded [place] Depression Scale Total 8 02/07/2023 The thought [...] encounter Miscellaneous Notes * Telephone Encounter - Hope Barnes LPN [...] 03/12/2023 11:45 AM EST Office Visit Gynecology/Obstetrics [facility] [address] [place] [address] Ela Castillo PA-C [address] [place] [address] 03/18/2023 11:45 AM EST Office Visit [facility]cology[facility] [address] [place] [address] Danita Clark CRNP [address] [place] [address] Health Maintenance Due Date Last Done Comments [...] filedocumented as of this encounter Care Teams Kitchen Aide Relationship Specialty Start Date End Date Elton Oliveira MD [address] [place] [address] [place] [address] PCP - General Family Medicine 04/03/15 documented as of this encounter
--- OUTSIDE RECORDS SUMMARY | 2023-03-23 09:34 | External Medical Summary | Summary of Care ---
Author Name Unknown Organization [facility] Address [address] [facility] [place] [address] Phone [phone] Care Team Providers Care Gastrointestinal Technician Name Role Phone Elton Oliveira MD Primary Care Provide r Encounter Details Date Type Department Care Team Description 02/07/2023 Telephone Gynecology/Obstetrics [facility] [address] [place] [address] BackerDanita CRNP [address] [place] [address] Allergies No known active allergiesdocumented as of [...] encounter Miscellaneous Notes * Telephone Encounter - Anitra Parker RN - 02/07/2023 1:12 PM EDT placed * Telephone Encounter - Jen Velasco LPN - 02/07/2023 12:33 PM EDT Pt requests breast pump be submitted to [facility]. documented in this encounter Plan of Treatment Upcoming Encounters Date Type Specialty Care Team Description 02/24/2023 Office Visit Gynecology Obstetrics Julio C Swartz, LEONARDO [address] [place] [address] 03/04/2023 Office Visit Gynecology Obstetrics BackDanita bhatt CRNP [address] [place] [address] 03/11/2023 Office Visit Gynecology Obstetrics BackDanita bhatt CRNP [address] [place] [address] 03/18/2023 Office Visit Gynecology Obstetrics BackerDanita CRNP [address] [place] [address] Health Maintenance Due Date Last Done Comments [...] filedocumented as of this encounter Care Teams Gastrointestinal Technician Relationship Specialty Start Date End Date Elton Oliveira MD [address] [place] [address] PCP - General Family Medicine 04/03/15 documented as of this encounter
--- OUTSIDE RECORDS SUMMARY | 2023-03-23 09:34 | External Medical Summary | Summary of Care ---
Author Name Unknown Organization [facility] Address [address] [facility] [place] [address] Phone [phone] Care Team Providers Care Flight Tower Dispatcher Name Role Phone Elton Oliveira MD Primary Care Provide r Reason for Visit * Reason Comments Return Visit Encounter Details Date Type Department Care Team Description 01/08/2023 Office Visit [facility] [address] [place] [address] Juana Gongora CRNP [address] [place] [address] Normal , third trimester*; Anemia in , third trimester; Need for prophylactic vaccination with combined fjomifaexz-bzlfcya-iqo tussis (DTP) vaccine Allergies No known active allergiesdocumented as of this encounter (statuses as of 01/08/2023) Medications Medication Sig Dispensed Refills Start Date End Date Status 28-0.8 MG Oral Tablet Take by mouth. 0 Active Docusate Sodium 100 MG Oral Capsule (Colace) Take 1 Capsule by mouth in the morning and 1 Capsule before bedtime. 0 Active documented as of this encounter (statuses as of 01/08/2023) Active Problems Problem Noted Date Anemia in [...] as of this encounter (statuses as of 01/08/2023) Resolved Problems Problem Noted Date Resolved Date [...] as of this encounter (statuses as of 01/08/2023) Immunizations Name Administration Dates Next Due TDAP [...] Sign Reading Time Taken Comments Blood Pressure 96/58 01/08/2023 3:16 PM EDT Pulse - - Temperature - - Respiratory Rate - - Oxygen Saturation - - Inhaled Oxygen Concentration - - Weight 73.9 kg (163 lb) 01/08/2023 3:16 PM EDT Height 170.2 cm (5' 7") 01/08/2023 3:16 PM EDT Body Mass Index 25.53 01/08/2023 3:16 PM EDT documented in this encounter Progress Notes * WILLIE Aguilar - 01/08/2023 3:33 PM EDT 29w2d Having discomfort of , but nothing concerning. Baby moving well. Possibly some BH contractions, no bleeding or LOF. TDAP today. WILLIE Aguilar * Josefa Lentz LPN - 01/08/2023 3:21 PM EDT 29w2d Pt denies any concerns. documented in this encounter Nursing Notes * Josefa Lentz LPN - 01/08/2023 3:35 PM EDT Patient here for tdap injection. Patient doing well no complaints. Injection given IM as ordered. Patient tolerated well. Patient to follow up as directed. Patient instructed to call if any complications. Patient verbalized understanding of instructions given. Injection site: Left Deltoid Medication Source: Dispensed stock medication documented in this encounter Plan of Treatment Upcoming Encounters Date Type Specialty Care Team Description 01/22/2023 Office Visit Gynecology Obstetrics Juana Gongora CRNP [address] [place] [address] 02/07/2023 Office Visit Gynecology Obstetrics Danita Clark CRNP [address] [place] [address] 02/24/2023 Office Visit Gynecology Obstetrics Julio C Swartz, LEONARDO[address] [place] [address] 03/04/2023 Office Visit Gynecology Obstetrics BackDanita bhatt CRNP [address] [place] [address] 03/11/2023 Office Visit Gynecology Obstetrics Danita Clark CRNP [address] [place] [address] 03/19/2023 Office Visit Gynecology Obstetrics Liliane Fairchild, CN [address] [place] [address] Health Maintenance Due Date Last Done Comments [...] 01/08/2033 01/08/2023, 06/16/2019, 07/01/2017, Additional history exists Hepatitis C Screening Completed 08/14/2022 , 08/14/2022, 08/14/2022 GARDASIL-HPV IMMUNIZATION SERIES Aged Out No longer [...] of this encounter Visit Diagnoses Diagnosis Normal , third trimester- Primary Anemia in , third trimester Need for prophylactic vaccination with combined fzurkbyzpt-wnxixej-lprghjwbo (DTP) vaccine documented in this encounter Care Teams Flight Tower Dispatcher Relationship Specialty Start Date End Date Elton Oliveira MD [address] [place] [address] PCP - General Family Medicine 04/03/15 documented as of this encounter
--- OUTSIDE RECORDS SUMMARY | 2023-03-23 09:34 | External Medical Summary | Summary of Care ---
Author Name Unknown Organization [facility] Address [address] [facility] [place] [address] Phone [phone] Care Team Providers Care Utilization Management Um Nurse Name Role Phone Elton Oliveira MD Primary Care Provide r Reason for Visit * Reason Comments Return Visit Encounter Details Date Type Department Care Team (Late st Contact Info) Description 03/04/2023 11:45 AM EST Office Visit [facility]necology/[facility]stetric s [facility] [address] [place] [address] Danita Clark CRNP [address] [place] [address] Normal in third trimester*; Anemia in , third trimester; GBS carrier Allergies No known active allergiesdocumented as of this encounter (statuses as of 03/04/2023) Medications Medication Sig Dispensed Refills Start Date [...] as of this encounter (statuses as of 03/04/2023) Active Problems Problem Noted Date Diagnosed Date [...] as of this encounter (statuses as of 03/04/2023) Resolved Problems Problem Noted Date Diagnosed Date [...] as of this encounter (statuses as of 03/04/2023) Immunizations Name Administration Dates Next Due SEASONAL [...] money to get more. Never true 08/08/2022 [place] Depression Scale Answer Date Recorded [place] Depression Scale Total 8 02/07/2023 The thought [...] Sign Reading Time Taken Comments Blood Pressure 100/62 03/04/2023 11:44 AM EST Pulse - - Temperature - - Respiratory Rate - - Oxygen Saturation - - Inhaled Oxygen Concentration - - Weight 78.9 kg (174 lb) 03/04/2023 11:44 AM EST Height - - Body Mass Index 27.25 02/07/2023 11:41 AM EDT documented in this encounter Progress Notes * Danita Clark CRNP - 03/04/2023 11:49 AM EST 37w1d Baby is active. No regular ctx/leaking/bleeding. Last labor was 3 hrs from ROM to delivery; concerned about adequate treatment for +GBS. Discussed, reviewed option for elective induction should she desire. 1 week return WILLIE Garcia * Hope Barnes LPN - 03/04/2023 11:45 AM EST 37w1d Denies vaginal bleeding + movement documented in this encounter Plan of Treatment Upcoming Encounters Date Type Department Care Team (Late st Contact Info) Description 03/12/2023 11:45 AM EST Office Visit Gynecology/Obstetrics [facility] [address] [place] [address] Ela Castillo PA-C [address] [place] [address] 03/18/2023 11:45 AM EST Office Visit Gynecology/Obstetrics [facility] [address] [place] [address] BackerDanita CRNP [address] [place] [address] Health Maintenance Due Date Last Done Comments [...] streptococcus documented in this encounter Care Teams Utilization Management Um Nurse Relationship Specialty Start Date End Date Elton Oliveira MD [address] [place] [address] [place] [address] PCP - General Family Medicine 04/03/15 documented as of this encounter
--- OUTSIDE RECORDS SUMMARY | 2023-03-23 09:34 | External Medical Summary | Summary of Care ---
Author Name Unknown Organization [facility] Address [address] [place] [address] Phone [phone] Care Team Providers Care Snowboard Instructor Name Role Phone Elton Oliveira MD Primary Care Provide r Reason for Visit * Reason Comments Return Visit Encounter Details Date Type Department Care Team (Late st Contact Info) Description 02/24/2023 3:45 PM EDT Office Visit Gynecology/Obstetric [facility] [address] [facility] [place] [address] Julio C Swartz [facility] [address] [place] [address] Normal in third trimester*; Anemia in , third trimester Allergies No known active allergiesdocumented as of this encounter (statuses as of 02/24/2023) Medications Medication Sig Dispensed Refills Start Date [...] as of this encounter (statuses as of 02/24/2023) Active Problems Problem Noted Date Diagnosed Date Anemia in , third trimester 12/19/2022 Overview: 11.6-encouraged either iron rich foods or beginning iron supplements. Normal 09/16/2022 Advance directive declined by patient 04/16/2017 Overview: No, Advance Directive brochure offered, patient declined. Estimated Date of Delivery Comme nts Yes 03/24/2023 Based on last me nstrual period of 06/17/2022 (Exact Date) documented as of this encounter (statuses as of 02/24/2023) Resolved Problems Problem Noted Date Diagnosed Date [...] as of this encounter (statuses as of 02/24/2023) Immunizations Name Administration Dates Next Due SEASONAL [...] money to get more. Never true 08/08/2022 [place] Depression Scale Answer Date Recorded [place] Depression Scale Total 8 02/07/2023 The thought [...] Sign Reading Time Taken Comments Blood Pressure 100/64 02/24/2023 3:49 PM EDT Pulse - - Temperature - - Respiratory Rate - - Oxygen Saturation - - Inhaled Oxygen Concentration - - Weight 78 kg (172 lb) 02/24/2023 3:49 PM EDT Height - - Body Mass Index 26.94 02/07/2023 11:41 AM EDT documented in this encounter Progress Notes * Julio C Swartz CNM - 02/24/2023 3:49 PM EDT MAURA at 36w0d Increasing back pain, was recommended by friends for a binder, wanted to make sure it was safe. Reviewed elasticity of muscles and ligaments in multips. Recommended the binder. Discussed other comfort measures. Has been trying to incorporate iron rich foods, does not like red meat, we talked about alternatives. She may try an iron supplement, aware at 11.6, does not need to but could also do every other day. She will consider. Feeling good FM. Denies any LOF, RUC, or VB. GBS reviewed and collected. Public Relations Specialist Documentation Provider requested desk top publisher. Name of desk top publisher: Chris Casper LPN RTO 1 week documented in this encounter Plan of Treatment Upcoming Encounters Date Type Department Care Team (Late st Contact Info) Description 03/04/2023 11:45 AM EST Office Visit Gynecology/Obstetrics [facility] [address] [place] [address] Backer, WILLIE Collier [address] [place] [address] 03/11/2023 11:45 AM EST Office Visit Gynecology/Obstetrics [facility] [address] [place] [address] Danita Clark CRNP [address] [place] [address] 03/18/2023 11:45 AM EST Office Visit Gynecology/Obstetrics [facility] [address] [place] [address] Danita Clark CRNP [address] [place] [address] Pending Results Name Type Priority Associated Diagnoses Date /Time GROUP B STREP CULTURE/PCR Lab Routine Normal in third trimester 02/24/2023 4:01 PM EDT Scheduled Orders Name Type Priority Associated Diagnoses Orde r Schedule GROUP B STREP CULTURE/PCR Lab Routine Normal in third trimester Expected: 02/24/2023, Expires: 02/25/2024 Health Maintenance Due Date Last Done Comments [...] trimester documented in this encounter Care Teams Snowboard Instructor Relationship Specialty Start Date End Date Elton Oliveira MD [address] [place] [address] PCP - General Family Medicine 04/03/15 documented as of this encounter
[2023-03-23] MEDS ORDERED: OXYTOCIN 30 UNITS/NSS 30 UNITS/500 ML BAG IV PRN ×2 (09:51→11:31)
[2023-03-23] MEDS ORDERED: LACTATED RINGER'S 1,000 ML IV PRN (09:51)
[2023-03-23] MEDS ORDERED: LIDOCAINE 1% LOCAL 20 ML VIAL INFIL PRN (09:51)
[2023-03-23] MEDS ORDERED: PENICILLIN GK 6 MU in DEXTROSE 5% 250 ML IV STA (09:56)
[2023-03-23 10:18] LABS: Hemoglobin 11.8 g/dl (12.0-16.0); Mean Corpuscular Hemoglobin 30.3 pg (25.0-34.0); Mean Corpuscular Hgb Conc 33.7 g/dL (32.0-36.0); Mean Platelet Volume 10.7 fL (9.4-12.4); Platelet Count 168 K/uL (130-400); RDW Coefficient of Variation 12.9 % (11.5-14.5); RDW Standard Deviation 42.5 fL (36.4-46.3); Red Blood Count 3.89 M/uL (4.20-5.40); White Blood Count 11.01 K/ul (4.8-10.8)
--- NOTE | 2023-03-23 10:24 | History & Physical Report ---
Date of Service March 23, 2023 Assessment & Plan (1) : Plan: Admit in labor Abx for GBS prophylaxis Admission and Anticipated Discharge Date Admission Date: March 23, 2023 History of Present Illness Chief Complaint: labor Primary Care Provider: Prakash Mathew DO 32 F P2012 at 39.2 weeks admitted in labor. GBS is positive. Allergies Allergy/AdvReac Type Severity Reaction Status Date / Time No Known Drug Allergies Allergy Verified 01/21/23 11:30 Home Medications Medication Instructions Recorded Confirmed Type budesonide 32 mcg/actuation nasal 2 spray intranasal DAILY #8.43 mL 09/18/22 03/23/23 Rx spray PNV cmb#95-ferrous fumarate-FA PO 01/21/23 01/21/23 History [ Multivitamins] ascorbic acid (vitamin C) PO PRN 01/21/23 01/21/23 History Patient History Medical History (Updated 03/23/23 @ 10:23 by Tyrone Simmons MD) Congestion of nasal sinus Acne Active labor at term Bradycardia Cough Irritation of both external auditory canals Irritation of left external auditory canal Uterine contractions at greater than 20 weeks of gestation No pertinent past medical history Surgical History History of oral surgery History of adenoidectomy History of tonsillectomy Family History Family/Other Alcohol abuse Paternal great grandfather Grandmother (Paternal) Colon cancer Grandfather (Maternal) Diabetes Myocardial infarction Grandmother (Maternal) Hypertension Thyroid disease Grandfather (Paternal) Kidney disease Other Asthma Cancer Heart disease Social History Smoking Status: Never smoker Hx Alcohol Use: No Hx Substance Use: No Preferred Language: Citizen Of [place] Communication Ability: Effective Beliefs That Will Affect Care: None marital status: Current Living Situation: Family current occupational status: employed 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 Feels Safe at Home: Yes Assistive Devices: None 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 History neg Review of Systems All systems reviewed & are unremarkable except as noted in HPI & below Physical Exam Constitutional: WD/WN, vitals as above Eyes: PERRL, conjunctivae normal, anicteric sclerae Respiratory: normal respiratory effort, lungs clear to auscultation Cardiovascular: RRR, no murmur, no edema Gastrointestinal (Abdomen): Inspection/Auscultation: abdomen normal to inspection Musculoskeletal: Extremities: extremities normal to inspection Skin: no rashes, warm and dry Neurologic: patellar DTR's 2+ bilat, sensation intact Psychiatric: A+Ox3, euthymic affect Genitourinary: Manual OB Exam: + cervical dilation 5 cm, + cervical effacement 100% and + station 0 OB Exam Monitor Tracing: + external FHT monitor used, + external uterine monitor used, + category I and + normal FHT variability Results & Data Vital Signs (Past 12 Hours) Vital Signs Pulse BP 03/23/23 09:42 65 113/72 Laboratory Results 03/23/23 10:01 WBC 11.01 H RBC 3.89 L Hgb 11.8 L Hct 35.0 L MCV 90.0 MCH 30.3 MCHC 33.7 RDW Std Deviation 42.5 RDW Coeff of Jordana 12.9 Plt Count 168 MPV 10.7 Monitoring External Monitor Cat 1 (1) Weeks of gestation: 39 weeks Qualified Code(s): Z3A.39 - 39 weeks gestation of
--- NOTE | 2023-03-23 10:33 | Labor Progress Brief Note ---
Date of Service March 23, 2023 Assessment & Plan Admission and Anticipated Discharge Date Admission Date: March 23, 2023 Physical Exam Genitourinary: Manual OB Exam: + cervical dilation 7 cm, + cervical effacement 100%, + station 0 and + amniotic fluid clear OB Exam Monitor Tracing: + external FHT monitor used, + external uterine monitor used, + category I and + normal FHT variability AROM with Amni-hook clear fluid Results & Data Vital Signs (Past 12 Hours) Vital Signs Temp Pulse Resp BP 03/23/23 10:11 36.8 C 20 03/23/23 09:42 65 113/72
--- NOTE | 2023-03-23 11:01 | Anesthesiology Consultation ---
Date of Service March 23, 2023 Assessment & Plan Chart Review Chart Review: Acceptable Risk for Surgery, Patient NOT seen in Pre Admission Testing and Acceptable Risk for Labor Epidural Consults Requested none ASA ASA2 Proposed Anesthesia Anesthesia Type: Labor Epidural and CSE History Height/Weight Height: 5 ft 8 in Weight: 82.1 kg Allergies Allergy/AdvReac Type Severity Reaction Status Date / Time No Known Drug Allergies Allergy Verified 01/21/23 11:30 Medications Home Medications Medication Instructions Recorded Confirmed Last Taken budesonide 32 mcg/actuation nasal 2 spray intranasal DAILY #8.43 mL 09/18/22 03/23/23 Unknown spray PNV cmb#95-ferrous fumarate-FA PO 01/21/23 01/21/23 Unknown [ Multivitamins] ascorbic acid (vitamin C) PO PRN 01/21/23 01/21/23 Unknown Active Medications Generic Name Dose Route Start Last Admin Trade Name Freq PRN Reason Stop Dose Admin Lactated Ringer's 1,000 mls @ 125 mls/hr 03/23/23 09:51 03/23/23 10:05 Lr IV 03/25/23 09:50 125 mls/hr .Q8H PRN Administration L&D Protocol Protocol Past Medical History Medical History Congestion of nasal sinus Acne Active labor at term Bradycardia Cough Irritation of both external auditory canals Irritation of left external auditory canal Uterine contractions at greater than 20 weeks of gestation No pertinent past medical history Exercise / Class Metabolic Activity II 4-5 Yardwork/Stairs/Walk up hill Past Family History Family History Family/Other Alcohol abuse Paternal great grandfather Grandmother (Paternal) Colon cancer Grandfather (Maternal) Diabetes Myocardial infarction Grandmother (Maternal) Hypertension Thyroid disease Grandfather (Paternal) Kidney disease Other Asthma Cancer Heart disease Past Surgical History Surgical History History of oral surgery History of adenoidectomy History of tonsillectomy Past Anesthesia History No Hx of Anesthesia Complications and No Family Hx of Anesthesia Complications History of PONV No Hx of PONV and No Hx of Motion Sickness Social History Smoking Status: Never smoker Hx Alcohol Use: No Alcohol type: beer and wine Hx Substance Use: No substance use type: does not use Physical Exam Vital Signs Last Vital Signs Temp 36.8 C 03/23/23 10:11 Pulse 65 03/23/23 09:42 Resp 20 03/23/23 10:11 BP 113/72 03/23/23 09:42 Testing Laboratory Results 03/23/23 10:01 Electrocardiogram Date: 05/08/21 Findings: + NSR @ (@ 64;RAD)
--- NOTE | 2023-03-23 11:30 | Delivery Summary ---
Vaginal Delivery Summary Date of Service March 23, 2023 Vaginal Delivery Summary live male JOLENE over intact perineum with delayed cord clamping and Apgars 8/9 weight pending. Cord blood obtained followed by spontaneous delivery of intact placenta. No tears. EBL 100 ml. Final sponge and instrument count are correct. Mom and baby stable.
[2023-03-23] MEDS ORDERED: BENZOCAINE 20% SPRY 85 APPLN/85 GM CAN EXT PRN (11:31)
[2023-03-23] MEDS ORDERED: ACETAMINOPHEN 325 MG TAB PO PRN (11:31)
[2023-03-23] MEDS ORDERED: HYDROCORTISONE ACETATE 25 MG SUPP PR PRN (11:31)
[2023-03-23] MEDS ORDERED: DIPHTHERIA/TETANUS/PERTUSSIS Vaccine (Tdap, Age 7+yrs) 0.5mL SYR/VL IM ONE (11:31)
[2023-03-23] MEDS ORDERED: bisacodyL 10 MG SUPP PR PRN (11:31)
[2023-03-23] MEDS: IBUPROFEN 600 MG TAB PO PRN ×3 (11:56→21:34)
[2023-03-23] MEDS ORDERED: PENICILLIN GK 3 MU in DEXTROSE 5% 100 ML IV PRN (12:51)
[2023-03-23] MEDS: DOCUSATE SODIUM 100 MG CAP PO SCH (21:34)
[2023-03-24] MEDS: IBUPROFEN 600 MG TAB PO PRN ×5 (00:18→17:40)
[2023-03-24 06:56] LABS: Hematocrit (blood only) 32.6 % (37.0-47.0); Hemoglobin 10.9 g/dl (12.0-16.0); Mean Corpuscular Hemoglobin 30.4 pg (25.0-34.0); Mean Corpuscular Hgb Conc 33.4 g/dL (32.0-36.0); Mean Corpuscular Volume 91.1 fL (80.0-100.0); Mean Platelet Volume 10.9 fL (9.4-12.4); Platelet Count 140 K/uL (130-400); RDW Coefficient of Variation 12.8 % (11.5-14.5); RDW Standard Deviation 41.8 fL (36.4-46.3); Red Blood Count 3.58 M/uL (4.20-5.40); White Blood Count 11.72 K/ul (4.8-10.8)
[2023-03-24] MEDS ORDERED: FERROUS SULFATE 325 MG TAB PO SCH (08:00)
[2023-03-24] MEDS ORDERED: PRENATAL VITAMIN 1 TAB PO SCH (08:00)
[2023-03-24] MEDS: DOCUSATE SODIUM 100 MG CAP PO SCH (08:45)
[2023-03-24] MEDS ORDERED: FLUTICASONE PROPIONATE NA SPR 16 GM BTL NAE SCH (09:00)
--- NOTE | 2023-03-24 09:20 | Obstetrical Progress Note ---
Date of Service March 24, 2023 Assessment & Plan Admission and Anticipated Discharge Date Admission Date: March 23, 2023 Subjective Patient is seen and examined. She feels well, no complaints. Ambulating without dizziness Voiding without difficulty Tolerating regular diet with out N&V Bleeding is minimal No fever/ chills/ CP/ SOB/ N&V/ Leg pain Breast feeding without problems Lab Results 03/23/23 03/24/23 Range/Units 10:01 06:24 WBC 11.01 H 11.72 H (4.8-10.8) K/ul RBC 3.89 L 3.58 L (4.20-5.40) M/uL Hgb 11.8 L 10.9 L (12.0-16.0) g/dl Hct 35.0 L 32.6 L (37.0-47.0) % MCV 90.0 91.1 (80.0-100.0) fL MCH 30.3 30.4 (25.0-34.0) pg MCHC 33.7 33.4 (32.0-36.0) g/dL RDW Std Deviation 42.5 41.8 (36.4-46.3) fL RDW Coeff of Jordana 12.9 12.8 (11.5-14.5) % Plt Count 168 140 (130-400) K/uL MPV 10.7 10.9 (9.4-12.4) fL Vital Signs Temp Pulse Resp BP Pulse Ox O2 Del Method 03/24/23 04:15 36.4 C L 65 18 107/66 96 Room Air 03/24/23 00:00 36.7 C 54 L 18 104/63 94 Room Air PE: General: Alert, orientedx3, NAD Abd: soft, NT, fundus firm, below Umbilicus Perineum intact, Lochia rubra minimal Ext; NT, no edema AP: 32 yo s/p , ppd# 1 VSS Afebrile doing well Continue routine care All questions were answered D/C home later this evening Results & Data Vital Signs (Past 12 Hours) Vital Signs Temp Pulse Resp BP Pulse Ox O2 Del Method 03/24/23 04:15 36.4 C L 65 18 107/66 96 Room Air 03/24/23 00:00 36.7 C 54 L 18 104/63 94 Room Air
[2023-03-24] MEDS ORDERED: bisacodyL 5 MG TABEC PO SCH (20:00)
== END 2023-03-24 20:00 | disposition home or self-care (01) | DRG 807 ==
LOC: OPB 09:27 → 4S1 09:29 → 4E2 13:55